=== PATIENT | female | born 1955 | race Caucasian/White ===

== ENCOUNTER 2021-12-31 14:03 | Inpatient (IN) | payer OTHER ==
--- OUTSIDE RECORDS SUMMARY | 2021-12-31 14:10 | XMS REPORT | Continuity of Care Document ---
:1955 Author Organization [facility] t Address [address] [place] [address] Care Team Providers Name Role Phone KOSTA AQUINO Primary Care Physician Unavailable TONI HUANG Attending Clinician Unavailable KAYLYNN VORA Attending Clinician Unavailable Kaylynn Vora DO Attending Clinician Reji Mcinotsh Attending Clinician Unavailable DAMION MARTÍNEZ Attending Clinician Unavailable Damion Martínez Attending Clinician Cher Milian Attending Clinician Saul Hollis MD Attending Clinician Physician, No Primary or Family Admitting Clinician Unavaila ble DAMION MARTÍNEZ Admitting Clinician Unavailable Damion Martínez Admitting Clinician Payers Payer Name Policy Type Policy Number Effective Date Expiration Date S julia [facility] WELLMED [id number] 2021 00:00:00 WELLMED/AARP [id number] 2021 MEDICARE ADVANTAGE 00:00:00 Problems Condition Condition Condition Status Onset Resolution Last Treating Co mments Source Name Details Category Date Date Treatment Clinician Date SYSTEMIC SYSTEMIC Diagnosis Active 2021-12-06 Memoria MASTOCYTOS MASTOCYTOS 11-27 07:56:00 l IS IS Active 00:00: Willie katz 11/27/2021 00 [facility] BONE BONE Diagnosis Active 2021-12-06 Mem oria MARROW MARROW 11-27 07:56:00 l BIO/ASPR BIO/ASPR 00:00: Willie katz VR VR Active 00 11/27/2021 [facility] WEAKNESS, WEAKNESS, Diagnosis Active 2021-09-29 Memoria DISORIENTE DISORIENTE 09-29 19:12:00 l D D Active 00:00: Bony 09/29/2021 00 [facility] DIABETIC DIABETIC Diagnosis Active 2021-10-04 Memoria FOOT FOOT 09-29 13:05:00 l INFECTION INFECTION 00:00: Herm thai Active 00 09/29/2021 [facility] Sepsis, Sepsis, Problem 2021-10-09 Me moria unspecifie unspecifie 06:57:17 l d organism d organism He rmann [facility] Other Other Problem 2021-10-09 Memor ia osteomyeli osteomyeli 06:57:17 l tis, ankle tis, ankle He rmann and foot and foot 10/09/2021 [facility] Chronic Chronic Problem 2021-10-09 M emoria systolic systolic 06:57:17 l (congestiv (congestiv He rmann e) heart e) heart failure failure 10/09/2021 [facility] Type 2 Type 2 Problem 2021-10-09 Dominick brock diabetes diabetes 06:57:17 l mellitus mellitus Willie n with with diabetic diabetic peripheral peripheral angiopathy angiopathy with with gangrene gangrene 10/09/2021 [facility] Acute Acute Problem 2021-10-09 Memor ia kidney kidney 06:57:17 l failure, failure, Willie n unspecifie unspecifie d d 10/09/2021 [facility] Other mast Other Problem 2021-10-09 M emoria cell mast cell 06:57:17 l neoplasms neoplasms Herm thai of of uncertain uncertain behavior behavior 10/09/2021 [facility] Chronic Chronic Problem 2021-10-09 Me josh kidney kidney 06:57:17 l disease, disease, Willie n stage 4 stage 4 (severe) (severe) 10/09/2021 [facility] Hypertensi Hypertens Problem 2021-10-09 Memoria ve heart igor heart 06:57:17 l and and Bony chronic chronic kidney kidney disease disease with heart with heart failure failure and stage and stage 1 through 1 through stage 4 stage 4 chronic chronic kidney kidney disease, disease, or or unspecifie unspecifie d chronic d chronic kidney kidney disease disease 10/09/2021 [facility] Contact Contact Problem 2021-10-09 Me moria with and with and 06:57:17 l (suspected (suspected He rmann ) exposure ) exposure to COVID19 to COVID19 10/09/2021 [facility] Type 2 Type 2 Problem 2021-10-09 Dominick brock diabetes diabetes 06:57:17 l mellitus mellitus Willie n with other with other specified specified complicati complicati on on 10/09/2021 [facility] Non-pressu Non-press Problem 2021-10-09 Memoria re chronic ure 06:57:17 l ulcer of chronic Ben[place]ides other part ulcer of of left other part foot with of left unspecifie foot with d severity unspecifie d severity 10/09/2021 [facility] Type 2 Type 2 Problem 2021-10-09 Dominick brock diabetes diabetes 06:57:17 l mellitus mellitus Willie n with with diabetic diabetic chronic chronic kidney kidney disease disease 10/09/2021 [facility] Type 2 Type 2 Problem 2021-10-09 Dominick brock diabetes diabetes 06:57:17 l mellitus mellitus Willie n with with hyperglyce hyperglyce avi avi 10/09/2021 [facility] Puncture Puncture Problem 2021-10-09 Memoria wound wound 06:57:17 l without without Bony foreign foreign body, body, unspecifie unspecifie d foot, d foot, initial initial encounter encounter 10/09/2021 [facility] Type 2 Type 2 Problem 2021-10-09 Dominick brock diabetes diabetes 06:57:17 l mellitus mellitus Willie n with foot with foot ulcer ulcer 10/09/2021 [facility] Type 2 Type 2 Problem 2021-10-09 Mem oria diabetes diabetes 06:57:17 l mellitus mellitus Willie n with other with other skin skin complicati complicati ons ons 10/09/2021 [facility] Nail Nail Problem 2021-10-09 Memor ia entering entering 06:57:17 l through through Benavides skin, skin, initial initial encounter encounter 10/09/2021 [facility] Type 2 Type 2 Problem 2021-10-09 Dominick brock diabetes diabetes 06:57:17 l mellitus mellitus Willie n with with diabetic diabetic polyneurop polyneurop athy athy 10/09/2021 [facility] terminologist terminologist Problem 2021-10-09 Memoria (current) (current) 06:57:17 l use of use of Ben[place]ides aspirin aspirin 10/09/2021 [facility] Other long Other Problem 2021-10-09 M emoria term extermination inspector 06:57:17 l (current) (current) Herm thai drug drug therapy therapy 10/09/2021 [facility] 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 06:57:17 l (disorder) (disorder) He rmann Resolved Problem 10/09/2021 [facility] Blood Blood Diagnosis Active 2019-01-14 Mem oria glucose glucose 18:07:58 l elevated elevated Willie n Active 01/14/2019 [facility] Non-insuli Non-insul Diagnosis Active 2019-01-14 Memoria n in 18:07:58 l dependent dependent Herm thai type 2 type 2 diabetes diabetes mellitus mellitus (HCCode) (HCCode) Active 01/14/2019 [facility] Diabetes Diabetes Problem Active 2021-10-09 Memoria mellitus mellitus 06:57:17 l (disorder) (disorder) He rmann Active Problem 10/09/2021 [facility] Hypertensi Problem Active 2021-10-09 M emoria ve Hypertensi 06:57:17 l disorder, ve Bony systemic disorder, arterial systemic (disorder) arterial (disorder) Active Problem 10/09/2021 [facility] Mast cell Mast cell Problem Active 2021-10-09 Memoria neoplasm neoplasm 06:57:17 l (disorder) (disorder) He rmann Active Problem 10/09/2021 [facility] Open wound Open Diagnosis Active 2019-06-07 Memoria of left wound of 18:40:02 l lower left lower Willie n extremity, extremity, initial initial encounter encounter Active 06/07/2019 [facility] TYPE 2 TYPE 2 Diagnosis Active 2021-10-04 Me moreno DIABETES DIABETES 13:05:00 l MELLITUS MELLITUS Willie sterling WITH OTHER WITH OTHER SKIN SKIN Active [facility] Bony Mast cell Mast cell Problem Active 2021-10-09 Memoria disorder disorder 06:57:17 l (disorder) (disorder) He rmann Active Problem 10/09/2021 [facility] No known No known Disease Unive rs active active ity of problems problems [place] [facility] Allergies, Adverse Reactions, Alerts Allergy Allergy Status Severity Reaction(s) Onset Inactive Treating Comm ents Source Name Type Date Date Clinician acetamin DA Active [facility] 10-26 [place] 00:00: d 00 [facility] ibuprofe DA Active [facility] n SWE[facility] 10-26 [place] 00:00: d 00 [facility] Sodium Sodium Active Anaphylaxis Memor ia Chloride Chloride 2-02 l 0.9 % 0.9 % 00:00: Bony (Flush) (Flush) 00 SODIUM DRUG Active Anaphylaxis Unive rs CHLORIDE INGREDI 2- ity of 0.9 % 00:00: [place] (FLUSH) 00 Medical Branch Sodium Propensi Active Anaphylaxis Patients U nivers Chloride ty to 2- states ity of 0.9 % adverse 00:00: allergic [place] (Flush) reaction 00 to Medical s everythin Branch g and cannot have an IV flush or any other meds. Tylenol Tylenol Active Memoria Allergy Allergy 01-09 l Complete Complete 00:00: Willie n 00 Ibuprofe Propensi Active [facility] n ty to 01-09 [place] adverse 00:00: of reaction 00 Medicin s to e drug Tylenol Propensi Active [facility] Allergy ty to 01-09 [place] Complete adverse 00:00: of reaction 00 Medicin s to e drug ibuprofe ibuprofe Active [facility] a n n l Bony Tylenol Tylenol Active Zakiaoria ezequiel [place] Social History Social Habit Start Date Stop Date Quantity Comments Source Alcohol intake [facility] lege of Medicine History [facility] ge of Alcohol Std Drinks Medici ne History [facility] ge of Alcohol Binge Medicine Exposure to 2021-12-16 2021-12-26 Not sure [facility] SARS-CoV-2 (event) 00:00:00 16:47:00 Medica l Branch Social History 2019-06-14 2019-06-14 [facility] zaidaann 03:05:18 03:05:18 History SDOH 2019-01-09 2019-01-09 1 [facility] Jamal ge of Alcohol Frequency 00:00:00 00:00:00 Medicin e Sex Ass[birth year] [facility] [place] 00:00:00 00:00:00 Medical Branch Smoking Status Start Date Stop Date Source Tobacco smoking consumption [facility] Medical unknown Branch Social [facility] Medications Ordered Filled Start Stop Current Ordering Indication Dosage Frequency Signature Comments Components Source Medication Medication Date Date Medication? Clinician (SIG) Name Name insulin 2021- No 10U 10 Units, Univ ers regular 12-26 Subcutaneo ity o f human 23:30: 22:30 us, ONCE, [place] (HUMULIN R) 00 :00 1 dose, On Me dical injection Tue Branch 10 Units 12/26/21 at 1830, Routine hydrOXYzine No 25mg 25 mg, Uni vers (ATARAX) 12-26 Oral, ity of tablet 25 22:30: 22:29 ONCE, 1 [place] mg 00 :00 dose, On Medical Tue Branch 12/26/21 at 1730, YOBANY glipiZIDE 2021- Yes [id number] 10mg Take 1 Univers XL 10 mg 24 12-26 tablet by it y of hr tablet 00:00: 04:59 mouth [place] 00 :00 daily with Medical breakfast Branch for 30 days. hydrOXYzine Yes 25 mg = 1 M emoria hydrochlori 5-31 tab, PO, l de 25 mg 21:23: TID, PRN Alyson nn oral tablet 00 Itching, # 15 tab, 0 Refill(s), [id number], 160.02, cm, 09/30/21 3:14:00 CDT, Height, 85.54, kg, 09/30/21 3:14:00 CDT, Weight hydrOXYzine Yes 25 mg = 1 M emoria hydrochlori 5-31 tab, PO, l de 25 mg 21:23: TID, PRN Alyson nn oral tablet 00 Itching, # 15 tab, 0 Refill(s), Pharmacy: [id number], 160.02, cm, 09/30/21 3:14:00 CDT, Height, 85.54, kg, 09/30/21 3:14:00 CDT, Weight doxycycline Yes 100 mg = 1 Memoria monohydrate 5-31 tab, PO, l 100 mg oral 17:51: Q12H, X 10 Bony tablet 00 day, # 20 tab, 0 Refill(s), Pharmacy: [facility][id number], 160.02, cm, 09/30/21 3:14:00 CDT, Height, 85.54, kg, 09/30/21 3:14:00 CDT, Weight doxycycline Yes 100 mg = 1 Memoria monohydrate 5-31 tab, PO, l 100 mg oral 17:51: Q12H, X 10 Benavides tablet 00 day, # 20 tab, 0 Refill(s), Pharmacy: [facility] #[id number], 160.02, cm, 09/30/21 3:14:00 CDT, Height, 85.54, kg, 09/30/21 3:14:00 CDT, Weight lidocaine No Route: IV, Me moria (ANES) 5-31 Drug form: l 14:26: INJ, ONCE, Stop date: 10/03/21 9:26:00 CDT ondansetron No Route: IV, Memoria (ANES) 5-31 Drug form: l 14:26: INJ, ONCE, Bony 00 Stop date: 10/03/21 9:26:00 CDT phenylephri No Route: IV, Memoria ne (ANES) 5-31 Drug form: l 14:26: INJ, ONCE, Benavides 00 Stop date: 10/03/21 9:26:00 CDT lidocaine No Route: IV, Me moria (ANES) 5-31 Drug form: l 14:26: INJ, ONCE, Stop date: 10/03/21 9:26:00 CDT ondansetron No Route: IV, Memoria (ANES) - Drug form: l 14:26: INJ, ONCE, Stop date: 10/03/21 9:26:00 CDT phenylephri No Route: IV, Memoria ne (ANES) 10-03 Drug form: l 14:26: INJ, ONCE, Stop date: 10/03/21 9:26:00 CDT fentaNYL No Route: IV, Mem oria (ANES) 10-03 Drug form: l 14:23: INJ, ONCE, Stop date: 10/03/21 9:23:00 CDT midazolam No Route: IV, Me moria (ANES) 10-03 Drug form: l 14:23: SOLN, ONCE, Stop date: 10/03/21 9:23:00 CDT fentaNYL No Route: IV, Mem oria (ANES) 10-03 Drug form: l 14:23: INJ, ONCE, Stop date: 10/03/21 9:23:00 CDT midazolam No Route: IV, Me moria (ANES) - Drug form: l 14:23: SOLN, ONCE, Stop date: 10/03/21 9:23:00 CDT propofol No Route: IV, Mem oria (ANES) 10 10-03 Drug form: l mg 13:46: INJ, Start date: 10/03/21 8:46:00 CDT, Stop date: 10/03/21 9:46:00 CDT propofol No Route: IV, Mem oria (ANES) 10 10-03 Drug form: l mg 13:46: INJ, Start date: 10/03/21 8:46:00 CDT, Stop date: 10/03/21 9:46:00 CDT Lactated No Route: IV, Mem oria Ringers - Total l Injection 13:33: Volume: Alyson nn IV (ANES) 00 1,000, 1000 mL Start date: 10/03/21 8:33:00 CDT, Stop date: 10/03/21 9:33:00 CDT Lactated No Route: IV, Mem oria Ringers 5-31 Total l Injection 13:33: Volume: Alyson nn IV (ANES) 00 1,000, 1000 mL Start date: 10/03/21 8:33:00 CDT, Stop date: 10/03/21 9:33:00 CDT insulin No Notes: Memoria glargine 5-31 (Same as: l 100 02:00: Lantus) Do Bony units/mL 00 not hold subcutaneou insulin s solution without contacting prescriber WASTE: F/P - Black; E - Municipal Trash Bin "single patient use only" Stable for 28 days at room temperatur e Expires in days from ____Date insulin No Notes: Memoria glargine 5-31 (Same as: l 100 02:00: Lantus) Do Benavides units/mL 00 not hold subcutaneou insulin s solution without contacting prescriber WASTE: F/P - Black; E - Municipal Trash Bin "single patient use only" Stable for 28 days at room temperatur e Expires in days from ____Date insulin No Notes: Memoria lispro 5-30 (Same as: l 21:30: Humalog) Benavides 00 Roll in palms of hands gently; Do not shake vigorously . WASTE: F/P - Black; E - Municipal Trash Bin Stable for 28 days at room temperatur e. Expires in days from ____Date insulin No Notes: Memoria lispro 5-30 (Same as: l 21:30: Humalog) Bony 00 Roll in palms of hands gently; Do not shake vigorously . WASTE: F/P - Black; E - Municipal Trash Bin Stable for 28 days at room temperatur e. Expires in days from ____Date amLODIPine No Notes: Memor ia 5-30 (Same as: l 14:00: Norvasc) Benavides amLODIPine No Notes: Memor ia 5-30 (Same as: l 14:00: Norvasc) Ben[place]ides hydrOXYzine No Notes: Dominick brock 5-30 (Same as: l 06:03: Atarax) Bony Avoid alcohol. hydrOXYzine No Notes: Dominick brock 5-30 (Same as: l 06:03: Atarax) Bony Avoid alcohol. insulin No 10 unit, Memori a glargine 5-30 Route: l 100 02:00: SUB-Q, Benavides units/mL 00 Bedtime, subcutaneou Dosing s solution Weight 85.54, kg, Start date: 10/01/21 21:00:00 CDT, Duration: 30 day, Stop date: 10/30/21 21:00:00 CDT insulin No 10 unit, Memori a glargine 5-30 Route: l 100 02:00: SUB-Q, Benavides units/mL 00 Bedtime, subcutaneou Dosing s solution Weight 85.54, kg, Start date: 10/01/21 21:00:00 CDT, Duration: 30 day, Stop date: 10/30/21 21:00:00 CDT insulin No Notes: Memoria lispro 5-29 (Same as: l 16:30: Humalog) Bony Roll in palms of hands gently; Do not shake vigorously . WASTE: F/P - Black; E - Municipal Trash Bin Stable for 28 days at room temperatur e. Expires in days from ____Date insulin No Notes: Memoria lispro 5-29 (Same as: l 16:30: Humalog) Benavides 00 Roll in palms of hands gently; Do not shake vigorously . WASTE: F/P - Black; E - Municipal Trash Bin Stable for 28 days at room temperatur e. Expires in days from ____Date doxycycline No Notes: NO M emoria 5-29 MILK/ANTAC l 14:00: IDS/IRON Ben[place]ides 00 Take 1 hour before or 2 hours after dairy products Lantus 100 No Notes: Memor ia units/mL 5-29 (Same as: l 14:00: Lantus) Do Benavides not hold insulin without contacting prescriber WASTE: F/P - Black; E - Municipal Trash Bin "single patient use only" Stable for 28 days at room temperatur e Expires in days from ____Date Santyl No Notes: Memoria 5-29 (Same As: l 14:00: Santyl) Bony 00 doxycycline No Notes: NO M emoria 5-29 MILK/ANTAC l 14:00: IDS/IRON Bony 00 Take 1 hour before or 2 hours after dairy products Lantus 100 No Notes: Memor ia units/mL -29 (Same as: l 14:00: Lantus) Do Benavides 00 not hold insulin without contacting prescriber WASTE: F/P - Black; E - Municipal Trash Bin "single patient use only" Stable for 28 days at room temperatur e Expires in days from ____Date Santyl No Notes: Memoria 5-29 (Same As: l 14:00: Santyl) Dextrose No 25 mL, Memoria 50% Syringe 10-01 Route: l (D50W) 10:07: IVP, Bony Dosing Weight 85.54, kg, PRN, PRN Blood Glucose Results, Start date: 10/01/21 5:07:00 CDT, Duration: 30 day, Stop date: 10/31/21 5:06:00 CDT glucagon No 1 mg, Memoria 10-01 Route: IM, l 10:07: Drug form: Benavides 00 PDR/INJ, PRN, Dosing Weight 85.54, kg, PRN Blood Glucose Results, Start date: 10/01/21 5:07:00 CDT, Duration: 30 day, Stop date: 10/31/21 5:06:00 CDT, 0 insulin No Notes: Memoria lispro 10-01 (Same as: l 10:07: Humalog) Roll in palms of hands gently; Do not shake vigorously . WASTE: F/P - Black; E - Municipal Trash Bin Stable for 28 days at room temperatur e. Expires in days from ____Date Dextrose No 25 mL, Memoria 50% Syringe 10-01 Route: l (D50W) 10:07: IVP, Dosing Weight 85.54, kg, PRN, PRN Blood Glucose Results, Start date: 10/01/21 5:07:00 CDT, Duration: 30 day, Stop date: 10/31/21 5:06:00 CDT glucagon No 1 mg, Memoria 10-01 Route: IM, l 10:07: Drug form: PDR/INJ, PRN, Dosing Weight 85.54, kg, PRN Blood Glucose Results, Start date: 10/01/21 5:07:00 CDT, Duration: 30 day, Stop date: 10/31/21 5:06:00 CDT, 0 insulin No Notes: Memoria lispro 10-01 (Same as: l 10:07: Humalog) Roll in palms of hands gently; Do not shake vigorously . WASTE: F/P - Black; E - Municipal Trash Bin Stable for 28 days at room temperatur e. Expires in days from ____Date hydrOXYzine No Notes: Dominick brock 09-30 (Same as: l 15:06: Atarax) Avoid alcohol. hydrOXYzine No Notes: Dominick brock 28 (Same as: l 15:06: Atarax) Avoid alcohol. Lantus 100 No Notes: Memor ia units/mL 09-30 (Same as: l 14:00: Lantus) Do not hold insulin without contacting prescriber WASTE: F/P - Black; E - Municipal Trash Bin "single patient use only" Stable for 28 days at room temperatur e Expires in days from ____Date aspirin No Notes: Do Memor ia 5-28 not crush l 14:00: or chew. Bony 00 (Same As: Ecotrin) Lipitor No Notes: Memoria 5-28 (Same as: l 14:00: Lipitor) amLODIPine No Notes: Memor ia 5-28 (Same as: l 14:00: Norvasc) bumetanide No Notes: Memor ia 5-28 (Same As: l 14:00: Bumex) carvedilol No Notes: Memor ia 5-28 Give with l 14:00: food. (Same As: Coreg) Lantus 100 No Notes: Memor ia units/mL 5-28 (Same as: l 14:00: Lantus) Do not hold insulin without contacting prescriber WASTE: F/P - Black; E - Municipal Trash Bin "single patient use only" Stable for 28 days at room temperatur e Expires in days from ____Date aspirin No Notes: Do Memor ia 5-28 not crush l 14:00: or chew. Benavides 00 (Same As: Ecotrin) Lipitor No Notes: Memoria 5-28 (Same as: l 14:00: Lipitor) amLODIPine No Notes: Memor ia 5-28 (Same as: l 14:00: Norvasc) bumetanide No Notes: Memor ia 5-28 (Same As: l 14:00: Bumex) carvedilol No Notes: Memor ia 5-28 Give with l 14:00: food. (Same As: Coreg) D10W 2022-0 No 125 mL, Memoria (bolus) IV 5-28 Rate: 999 l 05:20: ml/hr, Bony 00 Infuse over: 0.1 hr, Route: IVPB, Total Volume: 125, Start date: 09/30/21 0:20:00 CDT, Duration: 30 day, Stop date: 10/30/21 0:19:00 CDT, PRN Blood Glucose Results, 0 D10 No 125 mL, Memoria (bolus) IV 5-28 Rate: 999 l 05:20: ml/hr, Benavides 00 Infuse over: 0.1 hr, Route: IVPB, Total Volume: 125, Start date: 09/30/21 0:20:00 CDT, Duration: 30 day, Stop date: 10/30/21 0:19:00 CDT, PRN Blood Glucose Results, 0 D1 No 250 mL, Memoria (bolus) IV 5-28 Rate: 999 l 05:19: ml/hr, Benavides 00 Infuse over: 0.3 hr, Route: IVPB, Total Volume: 250, Start date: 09/30/21 0:19:00 CDT, Duration: 30 day, Stop date: 10/30/21 0:18:00 CDT, PRN Blood Glucose Results, 0 No 250 mL, Memoria (bolus) IV 5-28 Rate: 999 l 05:19: ml/hr, Benavides 00 Infuse over: 0.3 hr, Route: IVPB, Total Volume: 250, Start date: 09/30/21 0:19:00 CDT, Duration: 30 day, Stop date: 10/30/21 0:18:00 CDT, PRN Blood Glucose Results, 0 heparin 2021- No Notes: Memoria 5000 5-28 porcine l units/mL 05:00: heparin Willie n injectable 00 solution heparin 2021- No Notes: Memoria 5000 5-28 porcine l units/mL 05:00: heparin Willie n injectable 00 solution cefepime + No Notes: Memor ia Sodium 5-28 (Same As: l Chloride 04:00: Maxipime) Herm thai 0.9% IV 50 00 mL MEDICATION WASTE Product Size: 1000 mg Product Wasted: ___ mg cefepime + 2021-0 No Notes: Memor ia Sodium 5-28 (Same As: l Chloride 04:00: Maxipime) Herm thai 0.9% IV 50 00 mL MEDICATION WASTE Product Size: 1000 mg Product Wasted: ___ mg vancomycin 2021-0 No 2000 mg: Me moria + Sodium 5-28 infuse l Chloride 03:31: over 2.5 Alyson nn 0.9% IV 500 00 hours For mL adult patients only: Round to nearest 250 mg per Medical Staff approval MEDICATION WASTE Product Size: 1000 mg Product Wasted: ___ mg vancomycin 2021-0 No 2000 mg: Me moria + Sodium 5-28 infuse l Chloride 03:31: over 2.5 Alyson nn 0.9% IV 500 00 hours For mL adult patients only: Round to nearest 250 mg per Medical Staff approval MEDICATION WASTE Product Size: 1000 mg Product Wasted: ___ mg hydrALAZINE 2021-0 No Notes: Dominick brock 5-28 (Same as: l 03:13: Apresoline ) Push over 5 minutes hydrALAZINE 2021- No Notes: Dominick brock 5-28 (Same as: l 03:13: Apresoline ) Push over 5 minutes Dextrose 2021-0 No 25 mL, Memoria 50% Syringe - Route: l (D50W) 03:12: IVP, Dosing Weight 78.182, kg, PRN, PRN Blood Glucose Results, Start date: 09/29/21 22:12:00 CDT, Duration: 30 day, Stop date: 10/29/21 22:11:00 CDT glucagon 2021-0 No 1 mg, Memoria 5-28 Route: IM, l 03:12: Drug form: PDR/INJ, PRN, Dosing Weight 78.182, kg, PRN Blood Glucose Results, Start date: 09/29/21 22:12:00 CDT, Duration: 30 day, Stop date: 10/29/21 22:11:00 CDT, 0 insulin 2021-0 No Notes: Memoria lispro - (Same as: l 03:12: Humalog) Roll in palms of hands gently; Do not shake vigorously . WASTE: F/P - Black; E - Municipal Trash Bin Stable for 28 days at room temperatur e. Expires in days from ____Date Dextrose No 25 mL, Memoria 50% Syringe 09-30 Route: l (D50W) 03:12: IVP, Benavides Dosing Weight 78.182, kg, PRN, PRN Blood Glucose Results, Start date: 09/29/21 22:12:00 CDT, Duration: 30 day, Stop date: 10/29/21 22:11:00 CDT glucagon No 1 mg, Memoria 09-30 Route: IM, l 03:12: Drug form: Benavides 00 PDR/INJ, PRN, Dosing Weight 78.182, kg, PRN Blood Glucose Results, Start date: 09/29/21 22:12:00 CDT, Duration: 30 day, Stop date: 10/29/21 22:11:00 CDT, 0 insulin No Notes: Memoria lispro 09-30 (Same as: l 03:12: Humalog) Roll in palms of hands gently; Do not shake vigorously . WASTE: F/P - Black; E - Municipal Trash Bin Stable for 28 days at room temperatur e. Expires in days from ____Date Vancomycin No Notes: Memor ia Pharmacy 09-30 Vancomycin l Dosing 03:10: Pharmacy Bony Consult 53 Dosing Protocol PHARMAC Y USE ONLY Note: This is not a medication order. This is a consultati on order. Vancomycin No Notes: Memor ia Pharmacy 09-30 Vancomycin l Dosing 03:10: Pharmacy Bony Consult 53 Dosing Protocol PHARMAC Y USE ONLY Note: This is not a medication order. This is a consultati on order. morphine No 1 mg, 0.5 Dominick brock Sulfate - mL, Route: l 03:10: IVP, Drug Benavides 00 form: SOLN, Q4H, Dosing Weight 78.182, kg, PRN Pain Score 7-10, Start date: 09/29/21 22:10:00 CDT, Duration: 30 day, Stop date: 10/29/21 22:09:00 CDT, 0 morphine 2022-0 No 1 mg, 0.5 Dominick brock Sulfate 5-28 mL, Route: l 03:10: IVP, Drug form: SOLN, Q4H, Dosing Weight 78.182, kg, PRN Pain Score 7-10, Start date: 09/29/21 22:10:00 CDT, Duration: 30 day, Stop date: 10/29/21 22:09:00 CDT, 0 Dextrose 2022-0 No 25 mL, Memoria 50% Syringe 09-30 Route: l (D50W) 03:09: IVP, Dosing Weight 78.182, kg, PRN, PRN Blood Glucose Results, Start date: 09/29/21 22:09:00 CDT, Duration: 30 day, Stop date: 10/29/21 22:08:00 CDT glucagon 2022-0 No 1 mg, Memoria 09-30 Route: IM, l 03:09: PRN, Dosing Weight 78.182, kg, PRN Blood Glucose Results, Start date: 09/29/21 22:09:00 CDT, Duration: 30 day, Stop date: 10/29/21 22:08:00 CDT Dextrose 2022-0 No 25 mL, Memoria 50% Syringe 09-30 Route: l (D50W) 03:09: IVP, Dosing Weight 78.182, kg, PRN, PRN Blood Glucose Results, Start date: 09/29/21 22:09:00 CDT, Duration: 30 day, Stop date: 10/29/21 22:08:00 CDT glucagon 2022-0 No 1 mg, Memoria -28 Route: IM, l 03:09: PRN, Dosing Weight 78.182, kg, PRN Blood Glucose Results, Start date: 09/29/21 22:09:00 CDT, Duration: 30 day, Stop date: 10/29/21 22:08:00 CDT vancomycin 2022-0 No 1,000 mg, Me moria - Route: l 03:08: IVPB, Bony 00 ONCE, Dosing Weight 78.182, kg, Priority: STAT, Start date: 09/29/21 22:08:00 CDT, Stop date: 09/29/21 22:08:00 CDT, ABX Indication : Skin/Soft Tissue Infection vancomycin 2021-0 No 1,000 mg, Me moria 5-28 Route: l 03:08: IVPB, Benavides 00 ONCE, Dosing Weight 78.182, kg, Priority: STAT, Start date: 09/29/21 22:08:00 CDT, Stop date: 09/29/21 22:08:00 CDT, ABX Indication : Skin/Soft Tissue Infection Sodium 2-0 No 1,000 mL, Memori a Chloride 5-27 1000 l 0.9% 23:10: ml/hr, Benavides (Bolus) IV 00 Infuse Over: 1 hr, Route: IV, 1,000, Drug form: INJ, ONCE, Priority: STAT, Dosing Weight 78.182 kg, Start date: 09/29/21 18:10:00 CDT, Stop date: 09/29/21 18:10:00 CDT, 0 Sodium 2021-0 No 1,000 mL, Memori a Chloride 5-27 1000 l 0.9% 23:10: ml/hr, Bony (Bolus) IV 00 Infuse Over: 1 hr, Route: IV, 1,000, Drug form: INJ, ONCE, Priority: STAT, Dosing Weight 78.182 kg, Start date: 09/29/21 18:10:00 CDT, Stop date: 09/29/21 18:10:00 CDT, 0 Saline No Notes: Memoria Flush 0.9% 5-27 (Same as: l 23:08: BD Benavides 00 Posiflush) cefepime + No Notes: Memor ia Sodium 5-27 (Same as: l Chloride 23:08: Maxipime) Herm thai 0.9% IV 50 00 mL MEDICATION WASTE Product Size: 2000 mg Product Wasted: ___ mg Saline No Notes: Memoria Flush 0.9% 5-27 (Same as: l 23:08: BD Bony 00 Posiflush) cefepime + No Notes: Memor ia Sodium 5-27 (Same as: l Chloride 23:08: Maxipime) Herm thai 0.9% IV 50 00 mL MEDICATION WASTE Product Size: 2000 mg Product Wasted: ___ mg hydrOXYzine 2019- Yes Take 1 Dominick brock 25 mg 2-02 tablet by l tablet 00:00: mouth Bony 00 every 6 (six) hours. sulfamethox 2019-0 Yes Take 1 Dominick brock azole-trime 2-02 tablet by l thoprim 00:00: mouth [place] 800-160 mg 00 every 12 per tablet (twelve) hours. hydrOXYzine 2019- Yes [id number] 25mg Take 1 Univers 25 mg 2-02 tablet by ity of tablet 00:00: mouth [place] 00 every 6 Medical (six) Branch hours. sulfamethox 2019-0 Yes [id number] 1{tbl} Take 1 Univers azole-trime 2-02 tablet by ity of thoprim 00:00: mouth [place] 800-160 mg 00 every 12 Medic al per tablet (twelve) Branc h hours. ALOGLIPTIN 2019- No Take by [place] neha BENZOATE OR 01-09 mouth. Colle ge 20:58: 00:00 of 05 :00 Medicin e Repaglinide 2019- No Take by Buzz ledezma (PRANDIN 01-09 mouth 3 College OR) 20:57: 00:00 times of 56 :00 daily Medicin (with e meals). Repaglinide No Take by Zakia oria (PRANDIN 01-09 mouth 3 l OR) 00:00: times Bony 00 daily (with meals). ALOGLIPTIN No Take by Dominick brock BENZOATE OR 01-09 mouth. l 00:00: Bony 00 hydrOXYzine Yes Take 25 mg Memoria (ATARAX) 25 6-13 by mouth l MG tablet 00:00: daily as Herm thai 00 needed. hydrOXYzine 2018- Yes 25mg Take 25 mg [facility] (ATARAX) 25 6-13 by mouth [place] ege MG tablet 00:00: daily as of 00 needed. Medicin e Vital Signs Vital Name Observation Time Observation Value Comments Source Systolic blood 2021-12-26 23:15:00 139 mm[Hg] Univer sity of pressure [facility] Diastolic blood 2021-12-26 23:15:00 69 mm[Hg] Unive rsity of pressure [facility] Heart rate 2021-12-26 23:00:00 102 /min [facility]i ty [facility] Respiratory rate 2021-12-26 23:00:00 23 /min [facility] saturation in 2021-12-26 23:00:00 98 /min University Arterial blood by [facility] Pulse oximetry Branch Body temperature 2021-12-26 21:49:00 37 Amanda Univ ersity of [facility] Body height 2021-12-26 21:49:00 157.5 cm Universi ty [facility] Body weight 2021-12-26 21:49:00 80.74 kg [facility]i ty [facility] BMI 2021-12-26 21:49:00 32.56 kg/m2 Universi ty [facility] Systolic blood 2019-01-09 19:38:00 102 mm[Hg] [facility] pressure Medicine Diastolic blood 2019-01-09 19:38:00 90 mm[Hg] [facility] Medicine Heart rate 2019-01-09 19:38:00 102 /min [facility] Respiratory rate 2019-01-09 19:38:00 16 /min [facility] Body height 2019-01-09 19:38:00 157.5 cm [facility] Body weight 2019-01-09 19:38:00 75.751 kg [facility] BMI 2019-01-09 19:38:00 30.54 kg/m2 [facility] Systolic blood 2019-01-09 19:38:00 102 mm[Hg] [facility] pressure Medicine Diastolic blood 2019-01-09 19:38:00 90 mm[Hg] [facility] Medicine Heart rate 2019-01-09 19:38:00 102 /min [facility] Respiratory rate 2019-01-09 19:38:00 16 /min [facility] Body height 2019-01-09 19:38:00 157.5 cm [facility] Body weight 2019-01-09 19:38:00 75.751 kg [facility] BMI 2019-01-09 19:38:00 30.54 kg/m2 [facility] Heart Rate 2021-10-03 21:08:31 [facility] Respitory Rate 2021-10-03 21:08:31 Memori al [place] Systolic (mm Hg) 2021-10-03 21:08:08 Dominick rial Bony Diastolic (mm Hg) 2021-10-03 21:08:08 Mem orial [place] Heart Rate 2021-10-03 21:08:08 Memorial Bony Temperature Oral (F) 2021-10-03 21:07:28 98.5 F [facility] Heart Rate 2021-10-03 16:41:25 [facility] [place] Respitory Rate 2021-10-03 16:41:25 Memori al Bony Systolic (mm Hg) 2021-10-03 16:41:14 Dominick rial [place] Diastolic (mm Hg) 2021-10-03 16:41:14 Mem orial Bony Temperature Oral (F) 2021-10-03 16:40:11 98.2 F [facility] [place] Respitory Rate 2021-10-03 15:25:53 Memori al [place] Systolic (mm Hg) 2021-10-03 15:25:25 Dominick rial Bony Diastolic (mm Hg) 2021-10-03 15:25:25 Mem orial [place] Temperature Oral (F) 2021-10-03 15:25:06 98.1 F Memorial Bony Height 2021-09-30 08:14:00 160.02 cm [facility] Bony Weight 2021-09-30 08:14:00 [facility] BMI Calculated 2021-09-30 08:14:00 Memori al [place] Height 2021-09-30 05:04:00 157.48 cm [facility] BMI Calculated 2021-09-30 05:04:00 Memori al Bony Weight 2021-09-30 05:04:00 [facility] [place] Weight 2021-09-30 03:10:00 [facility] [place] Systolic (mm Hg) 2019-06-07 17:33:00 Dominick rial [place] Diastolic (mm Hg) 2019-06-07 17:33:00 Mem orial Bony Heart Rate 2019-06-07 17:33:00 Memorial Bony Respitory Rate 2019-06-07 17:33:00 Memori al Bony Temperature Oral (F) 2019-06-07 17:15:00 36.67 Amanda [facility] Weight 2019-06-07 17:15:00 Memorial Bony Systolic (mm Hg) 2019-01-09 19:38:00 Dominick rial Bony Diastolic (mm Hg) 2019-01-09 19:38:00 Mem orial Bony Heart Rate 2019-01-09 19:38:00 Memorial Bony Respitory Rate 2019-01-09 19:38:00 Memori al [place] Height 2019-01-09 19:38:00 157.5 cm Memorial Bony Weight 2019-01-09 19:38:00 Memorial Bony Procedures Procedure Date / Time Performed Performing Clinician Sour e POCT GLUCOSE 2021-12-26 22:11:00 Vora, [facility] (AUTOMATED) Medical Branch ASSIGNMENT OF BENEFITS 2019-06-08 00:07:18 Doctor Unassigned, No [facility] [place] Name CONSENT/REFUSAL FOR 2019-06-08 00:06:21 Doctor Unassigned, No Sc morial [place] DIAGNOSIS AND Name TREATMENT NOTICE OF PRIVACY 2019-06-08 00:04:49 Doctor Unassigned, No Dominick tristen Bony PRACTICES Name POCT HEMOGLOBIN A1C 2019-01-10 00:55:00 Saul Hollis [facility] POCT HEMOGLOBIN A1C 2019-01-09 19:55:00 Saul Hollis [facility] Plan of Care Planned Activity Planned Date Details Comments Source Diagnostic Test 2019-05-11 LIPID PANEL [code = Expected: [facility] Pending 00:00:00 23204-0] 05/11/2019, of Medicine Expires: 01/09/2022 Diagnostic Test 2019-05-11 COMPREHENSIVE Expected: [facility] [place] kamara Pending 00:00:00 METABOLIC PANEL [code 05/11/2019, Med iciannie = 57796-1] Expires: 01/09/2022 Diagnostic Test 2019-05-11 HEMOGLOBIN A1C [code Expected: [facility] Pending 00:00:00 = 4548-4] 05/11/2019, of Medicine Expires: 01/09/2022 Diagnostic Test 2019-05-11 MICROALBUMIN/CREAT Expected: [facility] Pending 00:00:00 URINE RATIO [code = 05/11/2019, of Medic ine 9318-7] Expires: 01/09/2022 Future Scheduled Diabetic foot Memorial Test examination Benavides (regime/therapy) [code = 056922377] Future Scheduled LIPID PANEL [code = Dominick rial Test 05909-9] Bony Future Scheduled COMPREHENSIVE Memorial Test METABOLIC PANEL [code Willie n = 44878-0] Future Scheduled HEMOGLOBIN A1C [code Mem orial Test = 4548-4] Bony Future Scheduled MICROALBUMIN/CREAT Memor ial Test URINE RATIO [code = Bony 9318-7] Future Scheduled INFLUENZA VACCINE Memori al Test (#1) [code = Benavides INFLUENZA VACCINE (#1)] Future Scheduled FLU VACCINE > 6 Memorial Test MONTHS [code = FLU Benavides VACCINE > 6 MONTHS] Future Scheduled Screening for Memorial Test malignant neoplasm of Willie n colon (procedure) [code = 776573986] Future Scheduled Zoster Recombinant Memor ial Test Vaccine (SHINGRIX) (1 Willie n of 2) [code = Zoster Recombinant Vaccine (SHINGRIX) (1 of 2)] Future Scheduled Screening for Memorial Test malignant neoplasm of Willie n breast (procedure) [code = 541633253] Future Scheduled CERVICAL CANCER Memorial Test SCREENING 3 YEAR Benavides FOLLOW UP [code = CERVICAL CANCER SCREENING 3 YEAR FOLLOW UP] Future Scheduled Screening for Memorial Test malignant neoplasm of Willie n cervix (procedure) [code = 566678221] Future Scheduled ANNUAL DIABETIC Memorial Test RETINOPATHY SCREENING Willie n [code = ANNUAL DIABETIC RETINOPATHY SCREENING] Future Scheduled TETANUS SHOT (ADULT) Mem orial Test [code = TETANUS SHOT Benavides (ADULT)] Future Scheduled DTaP,Tdap,and Td Memoria l Test Vaccines (1 - Tdap) Bony [code = DTaP,Tdap,and Td Vaccines (1 - Tdap)] Future Scheduled COLON CANCER Memorial Test SCREENING: Benavides COLONOSCOPY [code = COLON CANCER SCREENING: COLONOSCOPY] Future Scheduled Hepatitis C screening Me morial Test (procedure) [code = Bony 621764900] Future Scheduled COLON CANCER [facility] ege Test SCREENING: of Medicine COLONOSCOPY [code = COLON CANCER SCREENING: COLONOSCOPY] Future Scheduled MAMMOGRAM ANNUAL [facility] Test [code = MAMMOGRAM of Medicin e ANNUAL] Future Scheduled TETANUS SHOT (ADULT) [place] [facility] [employer] Test [code = TETANUS SHOT of Medi cine (ADULT)] Future Scheduled ANNUAL DIABETIC [facility] C ollege Test RETINOPATHY SCREENING of Med icine [code = ANNUAL DIABETIC RETINOPATHY SCREENING] Future Scheduled BMI FOLLOW UP PLAN [employer] Test [code = BMI FOLLOW UP of Med icine PLAN] Future Scheduled HEPATITIS C SCREENING [employer] Test [code = HEPATITIS C of Medic ine SCREENING] Future Scheduled HIV SCREENING [code = [employer] Test HIV SCREENING] of Medicine Future Scheduled CERVICAL CANCER [facility] C ollege Test SCREENING 3 YEAR of Medicine FOLLOW UP [code = CERVICAL CANCER SCREENING 3 YEAR FOLLOW UP] Future Scheduled FLU VACCINE > 6 [facility] C ollege Test MONTHS [code = FLU of Medici ne VACCINE > 6 MONTHS] Future Scheduled Diabetic foot [facility] Col lege Test examination of Medicine (regime/therapy) [code = 282408243] Encounters Start End Encounter Admission Attending Care Care Encounter Source Date/Time Date/Time Type Type Clinicians Facility Department ID 2021-12-04 Outpatient MONI HUANG [facility] [id number] [facility] 16:39:49 TONI 2021-10-03 Outpatient [facility] [id number] [place] 19:57:56 [id number] Health 2021-12-26 2021-12-26 Emergency X , [facility] ERT [id number] Univers 16:43:00 19:12:00 KAYLYNN souza [facility] 2021-12-26 2021-12-26 Emergency [facility] [id number] Univers 16:43:00 19:12:00 Kaylynn DELGADILLO [id number] i [facility] [id number] [facility] [id number] Medi scot 084 Branch 2021-10-26 2021-10-26 Emergency EM Madain, HCAPM [facility] [id number] [facility] 14:17:00 14:43:00 Safi 65 [facility] 2021-10-26 2021-10-26 Emergency EM Madain, HCAPM HCAPM [id number] [facility] 14:17:00 14:17:00 Safi [id number] [facility] 2021-09-29 2021-10-03 Inpatient [facility] [id number] Memoria 22:46:22 23:50:00 r Bony 00 l [facility] 2021-09-29 2021-10-03 Inpatient [facility] [id number] Memoria 22:46:22 23:50:00 r Benavides 00 l [facility] 2021-09-29 2021-10-03 Inpatient E [facility] MED [id number] MHBL 22:09:00 18:50:00 DAMION 2021-09-29 2021-10-03 Outpatient [facility] [place], [id number] 17:46:22 18:50:00 Damion 00 2021-09-29 2021-10-03 [id number] 17:46:22 18:50:00 Damion 00 2019-06-14 2019-06-13 Inpatient E [facility] MED [id number] [facility]BL 12:44:00 19:56:00 2019-06-07 2019-06-07 Emergency [facility] ADC-Emergen [id number] Memoria 17:01:56 18:39:00 r cy l Department Alyson 2019-06-07 2019-06-07 Emergency [place], [facility] [id number] 11:01:56 12:39:00 Cher Delgadillo [id number] [place] [id number] [place] [address] [id number] 2019-01-09 2019-01-09 Office nullFlavo [facility] [id number] [facility] 19:12:13 19:42:13 [facility] 2019-01-09 2019-01-09 Office TYRA Hollis [id number] [facility] 14:12:13 14:42:13 Visit Saul AMBULATOR [id number] College Y [id number] [facility] [id number] [place] [address] e Results Test Description Test Time Test Comments Results Result Comments Source POCT GLUCOSE (AUTOMATED) 2021-12-26 22:14:11 Test Item Value Reference Range Interpretation Comme nts POCT GLU (test code = 0166215825) 596 mg/dL 70-110 Lab Interpretation (test code = 99493-2) [facility] 03:08:00 Test Item Value Reference Range Interpretation Comments Coronavirus (COVID-19) Not Detected (10/02/21 MITCH (test code = 10:08 PM) Coronavirus (COVID-19) MITCH) [facility] 03:08:00 Test Item Value Reference Range Interpretation Comments Coronavirus (COVID-19) Not Detected (10/02/21 MITCH (test code = 10:08 PM) Coronavirus (COVID-19) MITCH) [facility]2022-05-30 15:31:00 Test Item Value Reference Range Interpretation Comments Calcium Lvl (test code = Calcium Lvl) 8.6 8.5-10.5 [place] 519302-05-30 15:31:00 Test Item Value Reference Range Interpretation Comments AGAP (test code = AGAP) 12.1 10.0-20.0 [place] 519302-05-30 15:31:00 Test Item Value Reference Range Interpretation Comments eGFR (test code = eGFR) 12 [place] 627322-05-30 15:31:00 Test Item Value Reference Range Interpretation Comments Segs (test code = Segs) 55.7 45.0-75.0 [place] 627322-05-30 15:31:00 Test Item Value Reference Range Interpretation Comments Lymphocytes (test code = Lymphocytes) 32.7 20.0-40.0 [place] 627322-05-30 15:31:00 Test Item Value Reference Range Interpretation Comments Monocytes (test code = Monocytes) 6.5 2.0-12.0 [place] [address]-05-30 15:31:00 Test Item Value Reference Range Interpretation Comments Eosinophils (test code = 3.8 See_Comment [A utomated message] The Eosinophils) system which ge nerated this result tra nsmitted reference range : <=4.0. The reference r roxana was not used to int erpret this result as normal/abnormal . [place] 627322-05-30 15:31:00 Test Item Value Reference Range Interpretation Comments Basophils (test code = 1.3 See_Comment [Aut omated message] The Basophils) system which ge nerated this result tra nsmitted reference range : <=1.0. The reference r roxana was not used to int erpret this result as normal/abnormal . [place] [address]-05-30 15:31:00 Test Item Value Reference Range Interpretation Comments Neutrophils # (test code = Neutrophils 4.5 1.5-8.1 #) [place] [address]-05-30 15:31:00 Test Item Value Reference Range Interpretation Comments Lymphocytes # (test code = Lymphocytes 2.7 1.0-5.5 #) [place] [address]-05-30 15:31:00 Test Item Value Reference Range Interpretation Comments Monocytes # (test code 0.5 See_Comment [Aut omated message] The = Monocytes #) system which generated this result tra nsmitted reference range : <=0.8. The reference r roxana was not used to int erpret this result as normal/abnormal . [place] [address]-05-30 15:31:00 Test Item Value Reference Range Interpretation Comments Eosinophils # (test code 0.3 See_Comment [A utomated message] The = Eosinophils #) system whic h generated this result tra nsmitted reference range : <=0.5. The reference r roxana was not used to int erpret this result as normal/abnormal . [place] [address]-05-30 15:31:00 Test Item Value Reference Range Interpretation Comments Basophils # (test code 0.1 See_Comment [Aut omated message] The = Basophils #) system which generated this result tra nsmitted reference range : <=0.2. The reference r roxana was not used to int erpret this result as normal/abnormal . [place] 627322-05-30 15:31:00 Test Item Value Reference Range Interpretation Comments WBC (test code = WBC) 8.1 3.7-10.4 [place] [address]-05-30 15:31:00 Test Item Value Reference Range Interpretation Comments RBC (test code = RBC) 3.21 4.20-5.40 [place] [address]-05-30 15:31:00 Test Item Value Reference Range Interpretation Comments Hgb (test code = Hgb) 8.4 12.0-16.0 [place] [address]-05-30 15:31:00 Test Item Value Reference Range Interpretation Comments Hct (test code = Hct) 25.9 36.0-48.0 [place] [address]-05-30 15:31:00 Test Item Value Reference Range Interpretation Comments MCV (test code = MCV) 80.8 80.0-98.0 [place] [address]-05-30 15:31:00 Test Item Value Reference Range Interpretation Comments MCH (test code = MCH) 26.1 pg 27.0-31.0 [place] [address]-05-30 15:31:00 Test Item Value Reference Range Interpretation Comments MCHC (test code = MCHC) 32.4 32.0-36.0 [place] [address]-05-30 15:31:00 Test Item Value Reference Range Interpretation Comments RDW (test code = RDW) 16.7 11.5-14.[address]05-30 15:31:00 Test Item Value Reference Range Interpretation Comments Platelet (test code = Platelet) 278 133-[address]05-30 15:31:00 Test Item Value Reference Range Interpretation Comments MPV (test code = MPV) 9.1 7.4-10.4 [place] 519302-05-30 15:31:00 Test Item Value Reference Range Interpretation Comments Glucose Lvl (test code = Glucose Lvl) 182 70-99 [place] 519302-05-30 15:31:00 Test Item Value Reference Range Interpretation Comments BUN (test code = BUN) 58 7-22 [place] 519302-05-30 15:31:00 Test Item Value Reference Range Interpretation Comments Creatinine Lvl (test code = Creatinine 3.74 0.50-1.40 Lvl) [place] 519302-05-30 15:31:00 Test Item Value Reference Range Interpretation Comments Sodium Lvl (test code = Sodium Lvl) 134 135-145 [place] 519302-05-30 15:31:00 Test Item Value Reference Range Interpretation Comments Potassium Lvl (test code = Potassium 4.1 3.5-5.1 Lvl) [place] 519302-05-30 15:31:00 Test Item Value Reference Range Interpretation Comments Chloride Lvl (test code = Chloride Lvl) 103 95-109 [facility]2022-05-30 15:31:00 Test Item Value Reference Range Interpretation Comments CO2 (test code = CO2) 23 24-32 [place] 627322-05-30 15:31:00 Test Item Value Reference Range Interpretation Comments Eosinophils # (test code 0.3 See_Comment [A utomated message] The = Eosinophils #) system whic h generated this result tra nsmitted reference range : <=0.5. The reference r roxana was not used to int erpret this result as normal/abnormal . [facility]15-39 15:31:00 Test Item Value Reference Range Interpretation Comments Basophils # (test code 0.1 See_Comment [Aut omated message] The = Basophils #) system which generated this result tra nsmitted reference range : <=0.2. The reference r roxana was not used to int erpret this result as normal/abnormal . [facility] HospitalZiwcpobSYGFIQYUOS6890-14-66 15:31:00 Test Item Value Reference Range Interpretation Comments WBC (test code = WBC) 8.1 3.7-10.4 [place] [address]-05-30 15:31:00 Test Item Value Reference Range Interpretation Comments RBC (test code = RBC) 3.21 4.20-5.40 [place] [address]-05-30 15:31:00 Test Item Value Reference Range Interpretation Comments Hgb (test code = Hgb) 8.4 12.0-16.0 [place] [address]-05-30 15:31:00 Test Item Value Reference Range Interpretation Comments Hct (test code = Hct) 25.9 36.0-48.0 [place] [address]-05-30 15:31:00 Test Item Value Reference Range Interpretation Comments MCV (test code = MCV) 80.8 80.0-98.0 [place] [address]-05-30 15:31:00 Test Item Value Reference Range Interpretation Comments MCH (test code = MCH) 26.1 pg 27.0-31.0 [place] [address]-05-30 15:31:00 Test Item Value Reference Range Interpretation Comments MCHC (test code = MCHC) 32.4 32.0-36.0 [place] [address]-05-30 15:31:00 Test Item Value Reference Range Interpretation Comments RDW (test code = RDW) 16.7 11.5-14.5 [place] 627322-05-30 15:31:00 Test Item Value Reference Range Interpretation Comments Platelet (test code = Platelet) 278 133-450 [place] [address]-05-30 15:31:00 Test Item Value Reference Range Interpretation Comments MPV (test code = MPV) 9.1 7.4-10.4 [place] 519302-05-30 15:31:00 Test Item Value Reference Range Interpretation Comments Glucose Lvl (test code = Glucose Lvl) 182 70-99 [place] 519302-05-30 15:31:00 Test Item Value Reference Range Interpretation Comments BUN (test code = BUN) 58 7-22 [place] 519302-05-30 15:31:00 Test Item Value Reference Range Interpretation Comments Creatinine Lvl (test code = Creatinine 3.74 0.50-1.40 Lvl) [place] 519302-05-30 15:31:00 Test Item Value Reference Range Interpretation Comments Sodium Lvl (test code = Sodium Lvl) 134 135-145 [place] 519302-05-30 15:31:00 Test Item Value Reference Range Interpretation Comments Potassium Lvl (test code = Potassium 4.1 3.5-5.1 Lvl) [place] 519302-05-30 15:31:00 Test Item Value Reference Range Interpretation Comments Chloride Lvl (test code = Chloride Lvl) 103 95-109 [place] 519302-05-30 15:31:00 Test Item Value Reference Range Interpretation Comments CO2 (test code = CO2) 23 24-32 [place] 519302-05-30 15:31:00 Test Item Value Reference Range Interpretation Comments Calcium Lvl (test code = Calcium Lvl) 8.6 8.5-10.5 [place] 519302-05-30 15:31:00 Test Item Value Reference Range Interpretation Comments AGAP (test code = AGAP) 12.1 10.0-20.0 [place] 519302-05-30 15:31:00 Test Item Value Reference Range Interpretation Comments eGFR (test code = eGFR) [address]05[address]30 15:31:00 Test Item Value Reference Range Interpretation Comments Segs (test code = Segs) 55.7 45.0-75.0 [place] 627322-05-30 15:31:00 Test Item Value Reference Range Interpretation Comments Lymphocytes (test code = Lymphocytes) 32.7 20.0-40.0 [place] [address]-05-30 15:31:00 Test Item Value Reference Range Interpretation Comments Monocytes (test code = Monocytes) 6.5 2.0-12.0 [place] [address]-05-30 15:31:00 Test Item Value Reference Range Interpretation Comments Eosinophils (test code = 3.8 See_Comment [A utomated message] The Eosinophils) system which ge nerated this result tra nsmitted reference range : <=4.0. The reference r roxana was not used to int erpret this result as normal/abnormal . [place] [address]-05-30 15:31:00 Test Item Value Reference Range Interpretation Comments Basophils (test code = 1.3 See_Comment [Aut omated message] The Basophils) system which ge nerated this result tra nsmitted reference range : <=1.0. The reference r roxana was not used to int erpret this result as normal/abnormal . [place] 627322-05-30 15:31:00 Test Item Value Reference Range Interpretation Comments Neutrophils # (test code = Neutrophils 4.5 1.5-8.1 #) [place] 627322-05-30 15:31:00 Test Item Value Reference Range Interpretation Comments Lymphocytes # (test code = Lymphocytes 2.7 1.0-5.5 #) [place] [address]-05-30 15:31:00 Test Item Value Reference Range Interpretation Comments Monocytes # (test code 0.5 See_Comment [Aut omated message] The = Monocytes #) system which generated this result tra nsmitted reference range : <=0.8. The reference r roxana was not used to int erpret this result as normal/abnormal . [place] 627322-05-29 12:18:00 Test Item Value Reference Range Interpretation Comments Sed Rate (test code = 70 See_Comment [Auto mated message] The Sed Rate) system which ge nerated this result transmit nolvia reference range : <=20. The reference range was not used to interpr et this result as desean l/abnormal. [place] [address]-05-29 12:18:00 Test Item Value Reference Range Interpretation Comments C-REACTIVE PROTEIN (test code = 11.8 C-REACTIVE PROTEIN) [place] 627322-05-29 12:18:00 Test Item Value Reference Range Interpretation Comments Sed Rate (test code = 70 See_Comment [Auto mated message] The Sed Rate) system which ge nerated this result transmit nolvia reference range : <=20. The reference range was not used to interpr et this result as desean l/abnormal. [place] [address]-05-29 12:18:00 Test Item Value Reference Range Interpretation Comments C-REACTIVE PROTEIN (test code = 11.8 C-REACTIVE PROTEIN) [place] 519302-05-29 12:15:00 Test Item Value Reference Range Interpretation Comments Glucose Lvl (test code = Glucose Lvl) 366 70-99 [place] 519302-05-29 12:15:00 Test Item Value Reference Range Interpretation Comments BUN (test code = BUN) 43 7-22 [place] 519302-05-29 12:15:00 Test Item Value Reference Range Interpretation Comments Creatinine Lvl (test code = Creatinine 3.40 0.50-1.40 Lvl) [place] 519302-05-29 12:15:00 Test Item Value Reference Range Interpretation Comments Sodium Lvl (test code = Sodium Lvl) 133 135-145 [place] 519302-05-29 12:15:00 Test Item Value Reference Range Interpretation Comments Potassium Lvl (test code = Potassium 4.9 3.5-5.1 Lvl) [place] [address]-05-29 12:15:00 Test Item Value Reference Range Interpretation Comments Chloride Lvl (test code = Chloride Lvl) 102 95-109 [place] 519302-05-29 12:15:00 Test Item Value Reference Range Interpretation Comments CO2 (test code = CO2) 23 24-32 [place] 519302-05-29 12:15:00 Test Item Value Reference Range Interpretation Comments Calcium Lvl (test code = Calcium Lvl) 8.8 8.5-10.5 [place] 519302-05-29 12:15:00 Test Item Value Reference Range Interpretation Comments AGAP (test code = AGAP) 12.9 10.0-20.0 [facility] 12:15:00 Test Item Value Reference Range Interpretation Comments eGFR (test code = eGFR) [address] [facility] HospitalXgqfingUIGFKCYLIF1290-40-92 12:15:00 Test Item Value Reference Range Interpretation Comments WBC (test code = WBC) 6.7 3.7-10.[address] [facility] HospitalZdupgrfXWXWJTAZOT6932-33-82 12:15:00 Test Item Value Reference Range Interpretation Comments RBC (test code = RBC) 3.22 4.20-5.[address] [facility] HospitalPsetlewFHBSPILCZA5355-43-99 12:15:00 Test Item Value Reference Range Interpretation Comments Hgb (test code = Hgb) 8.8 12.0-16.0 [place] 627322-05-29 12:15:00 Test Item Value Reference Range Interpretation Comments Hct (test code = Hct) 26.5 36.0-48.[address] [facility] HospitalNuroiavNXHCSTTWPK1436-57-21 12:15:00 Test Item Value Reference Range Interpretation Comments MCV (test code = MCV) 82.4 80.0-98.0 [place] [address]-05-29 12:15:00 Test Item Value Reference Range Interpretation Comments MCH (test code = MCH) 27.2 pg 27.0-31.[address] [facility] HospitalFyvyqdgTXDTJDPIOZ9569-40-75 12:15:00 Test Item Value Reference Range Interpretation Comments MCHC (test code = MCHC) 33.0 32.0-36.[address] [facility] HospitalGskvgvkILMZZXHTFQ8547-33-64 12:15:00 Test Item Value Reference Range Interpretation Comments RDW (test code = RDW) 16.3 11.5-14.5 [place] [address]-05-29 12:15:00 Test Item Value Reference Range Interpretation Comments Platelet (test code = Platelet) 286 133-[address] [facility] HospitalCeveolyOQRMMBTKNJ9746-06-07 12:15:00 Test Item Value Reference Range Interpretation Comments MPV (test code = MPV) 8.7 7.4-10.4 [place] 627322-05-29 12:15:00 Test Item Value Reference Range Interpretation Comments Segs (test code = Segs) 54.8 45.0-75.[address] [facility] HospitalZtbyoqhCUUGONRSBR9382-16-64 12:15:00 Test Item Value Reference Range Interpretation Comments Lymphocytes (test code = Lymphocytes) 30.4 20.0-40.0 [place] 627322-05-29 12:15:00 Test Item Value Reference Range Interpretation Comments Monocytes (test code = Monocytes) 7.9 2.0-12.0 [place] 627322-05-29 12:15:00 Test Item Value Reference Range Interpretation Comments Eosinophils (test code = 5.1 See_Comment [A utomated message] The Eosinophils) system which ge nerated this result tra nsmitted reference range : <=4.0. The reference r roxana was not used to int erpret this result as normal/abnormal . [place] 627322-05-29 12:15:00 Test Item Value Reference Range Interpretation Comments Basophils (test code = 1.8 See_Comment [Aut omated message] The Basophils) system which ge nerated this result tra nsmitted reference range : <=1.0. The reference r roxana was not used to int erpret this result as normal/abnormal . [facility] HospitalOdfkdjbNWGIEZOAFP8386-58-52 12:15:00 Test Item Value Reference Range Interpretation Comments Neutrophils # (test code = Neutrophils 3.7 1.5-8.1 #) [facility] HospitalAlbtcarIYDULAMBSW4648-94-21 12:15:00 Test Item Value Reference Range Interpretation Comments Lymphocytes # (test code = Lymphocytes 2.0 1.0-5.5 #) [place] 627322-05-29 12:15:00 Test Item Value Reference Range Interpretation Comments Monocytes # (test code 0.5 See_Comment [Aut omated message] The = Monocytes #) system which generated this result tra nsmitted reference range : <=0.8. The reference r roxana was not used to int erpret this result as normal/abnormal . [facility] HospitalLfthmdrSXTWUJDFKP3372-23-95 12:15:00 Test Item Value Reference Range Interpretation Comments Eosinophils # (test code 0.3 See_Comment [A utomated message] The = Eosinophils #) system whic h generated this result tra nsmitted reference range : <=0.5. The reference r roxana was not used to int erpret this result as normal/abnormal . [place] 627322-05-29 12:15:00 Test Item Value Reference Range Interpretation Comments Basophils # (test code 0.1 See_Comment [Aut omated message] The = Basophils #) system which generated this result tra nsmitted reference range : <=0.2. The reference r roxana was not used to int erpret this result as normal/abnormal . [place] 519302-05-29 12:15:00 Test Item Value Reference Range Interpretation Comments Glucose Lvl (test code = Glucose Lvl) 366 70-99 [place] [address]-05-29 12:15:00 Test Item Value Reference Range Interpretation Comments BUN (test code = BUN) 43 7-22 [place] 519302-05-29 12:15:00 Test Item Value Reference Range Interpretation Comments Creatinine Lvl (test code = Creatinine 3.40 0.50-1.40 Lvl) [place] 519302-05-29 12:15:00 Test Item Value Reference Range Interpretation Comments Sodium Lvl (test code = Sodium Lvl) 133 135-145 [place] 519302-05-29 12:15:00 Test Item Value Reference Range Interpretation Comments Potassium Lvl (test code = Potassium 4.9 3.5-5.1 Lvl) [place] [address]-05-29 12:15:00 Test Item Value Reference Range Interpretation Comments Chloride Lvl (test code = Chloride Lvl) 102 95-109 [place] 519302-05-29 12:15:00 Test Item Value Reference Range Interpretation Comments CO2 (test code = CO2) 23 24-32 [place] 519302-05-29 12:15:00 Test Item Value Reference Range Interpretation Comments Calcium Lvl (test code = Calcium Lvl) 8.8 8.5-10.5 [place] 519302-05-29 12:15:00 Test Item Value Reference Range Interpretation Comments AGAP (test code = AGAP) 12.9 10.0-20.0 [place] 519302-05-29 12:15:00 Test Item Value Reference Range Interpretation Comments eGFR (test code = eGFR) 13 [place] [address]-05-29 12:15:00 Test Item Value Reference Range Interpretation Comments WBC (test code = WBC) 6.7 3.7-10.[address] [facility] HospitalKnmynkiUBHXWJXLOE4818-23-82 12:15:00 Test Item Value Reference Range Interpretation Comments RBC (test code = RBC) 3.22 4.20-5.[address] [facility] HospitalGctvpewRZNNIPHKIF4165-57-25 12:15:00 Test Item Value Reference Range Interpretation Comments Hgb (test code = Hgb) 8.8 12.0-16.[address] [facility] HospitalVzijounUAQTQLOLKF3589-67-04 12:15:00 Test Item Value Reference Range Interpretation Comments Hct (test code = Hct) 26.5 36.0-48.[address] [facility] HospitalQnmgcbbTHSXZOBMWV5037-76-50 12:15:00 Test Item Value Reference Range Interpretation Comments MCV (test code = MCV) 82.4 80.0-98.[address] [facility] HospitalUmzwyjtMKUAAUWOMH4005-67-28 12:15:00 Test Item Value Reference Range Interpretation Comments MCH (test code = MCH) 27.2 pg 27.0-31.[address] [facility] HospitalPrifrtgKJVXQLGWLV5909-93-11 12:15:00 Test Item Value Reference Range Interpretation Comments MCHC (test code = MCHC) 33.0 32.0-36.[address] [facility] HospitalBzqefyjKZEZPCXARV8913-80-18 12:15:00 Test Item Value Reference Range Interpretation Comments RDW (test code = RDW) 16.3 11.5-14.[address] [facility] HospitalHzwogkfQNGZXXUMMM2763-68-84 12:15:00 Test Item Value Reference Range Interpretation Comments Platelet (test code = Platelet) 286 133-[address] [facility] HospitalQyzetqgVBNIHUBBDD0399-49-57 12:15:00 Test Item Value Reference Range Interpretation Comments MPV (test code = MPV) 8.7 7.4-10.[address] [facility] HospitalJeqlwekSQVEWZXMPC7347-98-69 12:15:00 Test Item Value Reference Range Interpretation Comments Segs (test code = Segs) 54.8 45.0-75.[address] [facility] HospitalXjfvvaeHFKOWELMKA5651-43-13 12:15:00 Test Item Value Reference Range Interpretation Comments Lymphocytes (test code = Lymphocytes) 30.4 20.0-40.[address] [facility] HospitalPtrihtnBTKWYGAIYL7015-88-01 12:15:00 Test Item Value Reference Range Interpretation Comments Monocytes (test code = Monocytes) 7.9 2.0-12.0 [place] [address]-05-29 12:15:00 Test Item Value Reference Range Interpretation Comments Eosinophils (test code = 5.1 See_Comment [A utomated message] The Eosinophils) system which ge nerated this result tra nsmitted reference range : <=4.0. The reference r roxana was not used to int erpret this result as normal/abnormal . [facility] HospitalPiyjbnlNRKNCYSJAG1719-41-25 12:15:00 Test Item Value Reference Range Interpretation Comments Basophils (test code = 1.8 See_Comment [Aut omated message] The Basophils) system which ge nerated this result tra nsmitted reference range : <=1.0. The reference r roxana was not used to int erpret this result as normal/abnormal . [facility] HospitalMumxkfaZGIKGDEKYS8705-23-25 12:15:00 Test Item Value Reference Range Interpretation Comments Neutrophils # (test code = Neutrophils 3.7 1.5-8.1 #) [facility] HospitalNzjqhleCDLSRTVKHW5461-28-20 12:15:00 Test Item Value Reference Range Interpretation Comments Lymphocytes # (test code = Lymphocytes 2.0 1.0-5.5 #) [facility] HospitalLtynwyuWYULNVDWIM8990-57-05 12:15:00 Test Item Value Reference Range Interpretation Comments Monocytes # (test code 0.5 See_Comment [Aut omated message] The = Monocytes #) system which generated this result tra nsmitted reference range : <=0.8. The reference r roxana was not used to int erpret this result as normal/abnormal . [facility] HospitalFaymvxsUOJRFNYPPM1136-59-23 12:15:00 Test Item Value Reference Range Interpretation Comments Eosinophils # (test code 0.3 See_Comment [A utomated message] The = Eosinophils #) system whic h generated this result tra nsmitted reference range : <=0.5. The reference r roxana was not used to int erpret this result as normal/abnormal . [facility] HospitalSnrytbxUOCDTUGWCI3339-63-19 12:15:00 Test Item Value Reference Range Interpretation Comments Basophils # (test code 0.1 See_Comment [Aut omated message] The = Basophils #) system which generated this result tra nsmitted reference range : <=0.2. The reference r roxana was not used to int erpret this result as normal/abnormal . [facility] SQJOWSJR9012-21-76 11:54:00 Test Item Value Reference Range Interpretation Comments MRSA by PCR (test Negative (10/01/21 6:54 code = MRSA by PCR) AM) [facility] - [id number] 11:54:00 Test Item Value Reference Range Interpretation Comments MRSA by PCR (test Negative (10/01/21 6:54 code = MRSA by PCR) AM) [place] 80160022-05-28 21:25:00 Test Item Value Reference Range Interpretation Comments Vancomycin AUC (test code = Vancomycin 26.2 AUC) [place] 376932-05-28 21:25:00 Test Item Value Reference Range Interpretation Comments Vancomycin AUC (test code = Vancomycin 26.2 AUC) [facility]2022-05-28 10:23:00 Test Item Value Reference Range Interpretation Comments Glucose Lvl (test code = Glucose Lvl) 365 70-99 [facility]2022-05-28 10:23:00 Test Item Value Reference Range Interpretation Comments BUN (test code = BUN) 29 11-24 [facility]2022-05-28 10:23:00 Test Item Value Reference Range Interpretation Comments Creatinine Lvl (test code = Creatinine 3.31 0.50-1.40 Lvl) [facility]2022-05-28 10:23:00 Test Item Value Reference Range Interpretation Comments Sodium Lvl (test code = Sodium Lvl) 136 135-145 [facility]2022-05-28 10:23:00 Test Item Value Reference Range Interpretation Comments Potassium Lvl (test code = Potassium 4.5 3.5-5.1 Lvl) [facility]2022-05-28 10:23:00 Test Item Value Reference Range Interpretation Comments Chloride Lvl (test code = Chloride Lvl) 104 95-109 [facility]2022-05-28 10:23:00 Test Item Value Reference Range Interpretation Comments CO2 (test code = CO2) [facility]2022-05-28 10:23:00 Test Item Value Reference Range Interpretation Comments Calcium Lvl (test code = Calcium Lvl) 8.5 8.5-10.5 [facility]2022-05-28 10:23:00 Test Item Value Reference Range Interpretation Comments AGAP (test code = AGAP) 13.5 10.0-20.0 [facility]2022-05-28 10:23:00 Test Item Value Reference Range Interpretation Comments eGFR (test code = eGFR) [address] [facility] HospitalYtfjzobINKCAGRRRN2388-90-67 10:23:00 Test Item Value Reference Range Interpretation Comments WBC (test code = WBC) 7.8 3.7-10.[address] [facility] HospitalLnilacbXXBTXMIXCW9592-45-58 10:23:00 Test Item Value Reference Range Interpretation Comments RBC (test code = RBC) 3.29 4.20-5.[address] [facility] HospitalBulpdvvKXWPALCROD1181-42-79 10:23:00 Test Item Value Reference Range Interpretation Comments Hgb (test code = Hgb) 8.4 12.0-16.[address] [facility] HospitalQoszutdRUOCIMVKAE2896-75-01 10:23:00 Test Item Value Reference Range Interpretation Comments Hct (test code = Hct) 26.5 36.0-48.[address] [facility] HospitalWoymoikRSHZGADCIC7648-33-66 10:23:00 Test Item Value Reference Range Interpretation Comments MCV (test code = MCV) 80.5 80.0-98.[address] [facility] HospitalNbddjjsSPURXXJEFN7086-82-18 10:23:00 Test Item Value Reference Range Interpretation Comments MCH (test code = MCH) 25.7 pg 27.0-31.[address] [facility] HospitalNptwqrnBTDZNJVTTB1356-84-06 10:23:00 Test Item Value Reference Range Interpretation Comments MCHC (test code = MCHC) 31.9 32.0-36.[address] [facility] HospitalPnbvfvzHQBOXGMZXV6760-62-00 10:23:00 Test Item Value Reference Range Interpretation Comments RDW (test code = RDW) 16.4 11.5-14.[address] [facility] HospitalIozodtkFNOUNAKABH5135-84-29 10:23:00 Test Item Value Reference Range Interpretation Comments Platelet (test code = Platelet) 281 133-[address] [facility] HospitalTwzqqmsAJLJHMERCF8888-84-69 10:23:00 Test Item Value Reference Range Interpretation Comments MPV (test code = MPV) 8.7 7.4-10.[address] [facility] HospitalRbctevxZVBUJHGHWR7226-94-11 10:23:00 Test Item Value Reference Range Interpretation Comments Segs (test code = Segs) 58.3 45.0-75.0 [place] 627322-05-28 10:23:00 Test Item Value Reference Range Interpretation Comments Lymphocytes (test code = Lymphocytes) 28.9 20.0-40.[address] [facility] HospitalJjtqhtrCTIQXPIMLZ4568-11-72 10:23:00 Test Item Value Reference Range Interpretation Comments Monocytes (test code = Monocytes) 7.8 2.0-12.[address] [facility] HospitalZmxpkkdWUXRFGKRHH3354-50-24 10:23:00 Test Item Value Reference Range Interpretation Comments Eosinophils (test code = 3.6 See_Comment [A utomated message] The Eosinophils) system which ge nerated this result tra nsmitted reference range : <=4.0. The reference r roxana was not used to int erpret this result as normal/abnormal . [facility] HospitalZlbwtubTDIBNBNOIT1683-37-82 10:23:00 Test Item Value Reference Range Interpretation Comments Basophils (test code = 1.4 See_Comment [Aut omated message] The Basophils) system which ge nerated this result tra nsmitted reference range : <=1.0. The reference r roxana was not used to int erpret this result as normal/abnormal . [facility] HospitalGzyfifvZOLZRRPHYM9371-45-70 10:23:00 Test Item Value Reference Range Interpretation Comments Neutrophils # (test code = Neutrophils 4.5 1.5-8.1 #) [facility] HospitalJlmpvxdILQWFLWWOS1341-56-26 10:23:00 Test Item Value Reference Range Interpretation Comments Lymphocytes # (test code = Lymphocytes 2.2 1.0-5.5 #) [facility] HospitalPsacpcwUIIPRQEVRM8993-50-73 10:23:00 Test Item Value Reference Range Interpretation Comments Monocytes # (test code 0.6 See_Comment [Aut omated message] The = Monocytes #) system which generated this result tra nsmitted reference range : <=0.8. The reference r roxana was not used to int erpret this result as normal/abnormal . [facility] HospitalUepgixcVVZNBYCVSG0956-28-40 10:23:00 Test Item Value Reference Range Interpretation Comments Eosinophils # (test code 0.3 See_Comment [A utomated message] The = Eosinophils #) system whic h generated this result tra nsmitted reference range : <=0.5. The reference r roxana was not used to int erpret this result as normal/abnormal . [facility] HospitalYdmrfoyYAFWQMUCIV9023-44-61 10:23:00 Test Item Value Reference Range Interpretation Comments Basophils # (test code 0.1 See_Comment [Aut omated message] The = Basophils #) system which generated this result tra nsmitted reference range : <=0.2. The reference r roxana was not used to int erpret this result as normal/abnormal . [facility]QzsqpkjKPXGBWLHTG5521-67-04 10:23:00 Test Item Value Reference Range Interpretation Comments Sed Rate (test code = 70 See_Comment [Auto mated message] The Sed Rate) system which ge nerated this result transmit nolvia reference range : <=20. The reference range was not used to interpr et this result as desean l/abnormal. [facility]manKrnycvkVFMCOWAGDA7200-49-11 10:23:00 Test Item Value Reference Range Interpretation Comments C-REACTIVE PROTEIN (test code = 13.1 C-REACTIVE PROTEIN) [facility]JeuhazxEKSEHE7721-78-80 10:23:00 Test Item Value Reference Range Interpretation Comments Trig (test code = Trig) 304 [facility] SystemYbjbowoSQWZKY2951-37-55 10:23:00 Test Item Value Reference Range Interpretation Comments Chol (test code = Chol) 223 [facility] SystemOzskgmcIGCSOR7482-49-18 10:23:00 Test Item Value Reference Range Interpretation Comments HDL (test code = HDL) 34 [facility] SystemXhvzwwhIEFWPN7411-21-75 10:23:00 Test Item Value Reference Range Interpretation Comments CHD Risk (test code = CHD Risk) 6.56 1 3.90-5.80 [facility] SystemUxwoimyLHKEXH3621-23-99 10:23:00 Test Item Value Reference Range Interpretation Comments LDL (Calculated) (test code = LDL 128 (Calculated)) [facility] SystemJfvpshcJAKWIX0855-86-45 10:23:00 Test Item Value Reference Range Interpretation Comments VLDL (test code = VLDL) 61 1 [facility]manHeqoetfHZEGUWGSBJ0649-44-53 10:23:00 Test Item Value Reference Range Interpretation Comments Vancomycin AUC (test code = Vancomycin 37.8 AUC) [facility] [id number] 10:23:00 Test Item Value Reference Range Interpretation Comments Glucose Lvl (test code = Glucose Lvl) 365 70-99 [facility] [id number] 10:23:00 Test Item Value Reference Range Interpretation Comments BUN (test code = BUN) 29 7-22 [place] 519302-05-28 10:23:00 Test Item Value Reference Range Interpretation Comments Creatinine Lvl (test code = Creatinine 3.31 0.50-1.40 Lvl) [place] 519302-05-28 10:23:00 Test Item Value Reference Range Interpretation Comments Sodium Lvl (test code = Sodium Lvl) 136 135-145 [place] 519302-05-28 10:23:00 Test Item Value Reference Range Interpretation Comments Potassium Lvl (test code = Potassium 4.5 3.5-5.1 Lvl) [place] 519302-05-28 10:23:00 Test Item Value Reference Range Interpretation Comments Chloride Lvl (test code = Chloride Lvl) 104 95-109 [place]302-05-28 10:23:00 Test Item Value Reference Range Interpretation Comments CO2 (test code = CO2) 23 24-32 [place] 519302-05-28 10:23:00 Test Item Value Reference Range Interpretation Comments Calcium Lvl (test code = Calcium Lvl) 8.5 8.5-10.5 [place]302-05-28 10:23:00 Test Item Value Reference Range Interpretation Comments AGAP (test code = AGAP) 13.5 10.0-20.0 [place]302-05-28 10:23:00 Test Item Value Reference Range Interpretation Comments eGFR (test code = eGFR) 14 [place] 627322-05-28 10:23:00 Test Item Value Reference Range Interpretation Comments WBC (test code = WBC) 7.8 3.7-10.4 [place] [address]-05-28 10:23:00 Test Item Value Reference Range Interpretation Comments RBC (test code = RBC) 3.29 4.20-5.40 [place] [address]-05-28 10:23:00 Test Item Value Reference Range Interpretation Comments Hgb (test code = Hgb) 8.4 12.0-16.0 [place] [address]-05-28 10:23:00 Test Item Value Reference Range Interpretation Comments Hct (test code = Hct) 26.5 36.0-48.0 [place] 627322-05-28 10:23:00 Test Item Value Reference Range Interpretation Comments MCV (test code = MCV) 80.5 80.0-98.[address] [id number] 10:23:00 Test Item Value Reference Range Interpretation Comments MCH (test code = MCH) 25.7 pg 27.0-31.[address] [facility] HospitalTwyfmgqUSEKCJIRGU6444-05-72 10:23:00 Test Item Value Reference Range Interpretation Comments MCHC (test code = MCHC) 31.9 32.0-36.[address] [facility] HospitalEoycdtlKEKHPGTTTN7741-26-80 10:23:00 Test Item Value Reference Range Interpretation Comments RDW (test code = RDW) 16.4 11.5-14.5 [place] [id number] 10:23:00 Test Item Value Reference Range Interpretation Comments Platelet (test code = Platelet) 281 133-[address] [facility] HospitalGcmwxwiMYZOPWVCWZ2089-92-78 10:23:00 Test Item Value Reference Range Interpretation Comments MPV (test code = MPV) 8.7 7.4-10.[address] [facility] Hos[id number] 10:23:00 Test Item Value Reference Range Interpretation Comments Segs (test code = Segs) 58.3 45.0-75.[address] [facility] HospitalFwvuqtmJTFPYBGKVU9851-17-44 10:23:00 Test Item Value Reference Range Interpretation Comments Lymphocytes (test code = Lymphocytes) 28.9 20.0-40.[address] [facility] Hospit[id number] 10:23:00 Test Item Value Reference Range Interpretation Comments Monocytes (test code = Monocytes) 7.8 2.0-12.0 [place] [id number] 10:23:00 Test Item Value Reference Range Interpretation Comments Eosinophils (test code = 3.6 See_Comment [A utomated message] The Eosinophils) system which ge nerated this result tra nsmitted reference range : <=4.0. The reference r roxana was not used to int erpret this result as normal/abnormal . [facility] HospitalBqwtqnhWBVOKBLWHD6387-38-96 10:23:00 Test Item Value Reference Range Interpretation Comments Basophils (test code = 1.4 See_Comment [Aut omated message] The Basophils) system which ge nerated this result tra nsmitted reference range : <=1.0. The reference r roxana was not used to int erpret this result as normal/abnormal . [facility] HospitalSnxgiahJZBOXRFGXK3938-33-19 10:23:00 Test Item Value Reference Range Interpretation Comments Neutrophils # (test code = Neutrophils 4.5 1.5-8.1 #) [facility] HospitalZmxfyibCKYAJEEZLD7332-93-75 10:23:00 Test Item Value Reference Range Interpretation Comments Lymphocytes # (test code = Lymphocytes 2.2 1.0-5.5 #) [place] 627322-05-28 10:23:00 Test Item Value Reference Range Interpretation Comments Monocytes # (test code 0.6 See_Comment [Aut omated message] The = Monocytes #) system which generated this result tra nsmitted reference range : <=0.8. The reference r roxana was not used to int erpret this result as normal/abnormal . [facility] HospitalNcygvavWQRNIVDMDG4045-85-87 10:23:00 Test Item Value Reference Range Interpretation Comments Eosinophils # (test code 0.3 See_Comment [A utomated message] The = Eosinophils #) system whic h generated this result tra nsmitted reference range : <=0.5. The reference r roxana was not used to int erpret this result as normal/abnormal . [facility] HospitalRinedwtKCFRYSWMUL7010-10-22 10:23:00 Test Item Value Reference Range Interpretation Comments Basophils # (test code 0.1 See_Comment [Aut omated message] The = Basophils #) system which generated this result tra nsmitted reference range : <=0.2. The reference r roxana was not used to int erpret this result as normal/abnormal . [facility] HospitalRfhsoooGZRUYNKSPT0077-73-38 10:23:00 Test Item Value Reference Range Interpretation Comments Sed Rate (test code = 70 See_Comment [Auto mated message] The Sed Rate) system which ge nerated this result transmit nolvia reference range : <=20. The reference range was not used to interpr et this result as desean l/abnormal. [facility]EB[facility] 10:23:00 Test Item Value Reference Range Interpretation Comments C-REACTIVE PROTEIN (test code = 13.1 C-REACTIVE PROTEIN) [place] [id number] 10:23:00 Test Item Value Reference Range Interpretation Comments Trig (test code = Trig) 304 [place] [id number] 10:23:00 Test Item Value Reference Range Interpretation Comments Chol (test code = Chol) 223 [facility]CeuxipfZUPXCA4738-32-12 10:23:00 Test Item Value Reference Range Interpretation Comments HDL (test code = HDL) 34 [facility] SystemSycffviXQXPVS4965-74-59 10:23:00 Test Item Value Reference Range Interpretation Comments CHD Risk (test code = CHD Risk) 6.56 1 3.90-5.80 [facility] ZtthgoxYJBIPR6112-31-73 10:23:00 Test Item Value Reference Range Interpretation Comments LDL (Calculated) (test code = LDL 128 (Calculated)) [facility] SystemEhxssohKCBLQC4945-93-58 10:23:00 Test Item Value Reference Range Interpretation Comments VLDL (test code = VLDL) 61 1 [facility]cyqohvBNKTWZCYTG3399-50-18 10:23:00 Test Item Value Reference Range Interpretation Comments Vancomycin AUC (test code = Vancomycin 37.8 AUC) [facility] [id number] 04:16:00 Test Item Value Reference Range Interpretation Comments Lactic Acid Lvl (test code = Lactic 0.6 0.5-2.2 Acid Lvl) [facility] [id number] 04:16:00 Test Item Value Reference Range Interpretation Comments Lactic Acid Lvl (test code = Lactic 0.6 0.5-2.2 Acid Lvl) [facility] AND [id number] 02:20:00 Test Item Value Reference Range Interpretation Comments UA Color (test code = Yellow *NA*(09/29/21 UA Color) 9:20 PM) [facility] AND [id number] 02:20:00 Test Item Value Reference Range Interpretation Comments UA Turbidity (test code Slight *ABN*(09/29/21 = UA Turbidity) 9:20 PM) [facility] [id number] 02:20:00 Test Item Value Reference Range Interpretation Comments UA Spec Grav (test code = UA Spec 1.017 1 Grav) [facility] AND [id number] 02:20:00 Test Item Value Reference Range Interpretation Comments UA pH (test code = UA pH) 6.0 1 5.0-8.0 [facility] [id number] 02:20:00 Test Item Value Reference Range Interpretation Comments UA Protein (test code = UA Protein) 100 mg/dL [facility] AND [id number] 02:20:00 Test Item Value Reference Range Interpretation Comments UA Glucose (test code = UA >=500 mg/dL Glucose) [facility] AND [id number] 02:20:00 Test Item Value Reference Range Interpretation Comments UA Ketones (test code = UA Negative mg/dL Ketones) [facility] AND [id number] 02:20:00 Test Item Value Reference Range Interpretation Comments UA Bili (test code = Negative *NA*(09/29/21 UA Bili) 9:20 PM) [facility] AND [id number] 02:20:00 Test Item Value Reference Range Interpretation Comments UA Blood (test code = Negative (09/29/21 9:20 UA Blood) PM) [facility] AND [id number] 02:20:00 Test Item Value Reference Range Interpretation Comments UA Nitrite (test code Negative (09/29/21 9:20 = UA Nitrite) PM) [facility] AND [id number] 02:20:00 Test Item Value Reference Range Interpretation Comments UA Leuk Est (test Negative (09/29/21 9:20 code = UA Leuk Est) PM) [facility] AND [id number] 02:20:00 Test Item Value Reference Range Interpretation Comments UA Sq Epi (test code = UA Sq Epi) Few /LPF [facility] AND [id number] 02:20:00 Test Item Value Reference Range Interpretation Comments UA WBC (test code = 1 See_Comment [Automa nolvia message] The UA WBC) system which ge nerated this result transmit nolvia reference range : <=5. The reference range was not used to interpr et this result as desean l/abnormal. [facility] AND [id number] 02:20:00 Test Item Value Reference Range Interpretation Comments UA RBC (test code = 2 See_Comment [Automa nolvia message] The UA RBC) system which ge nerated this result transmit nolvia reference range : <=2. The reference range was not used to interpr et this result as desean l/abnormal. [facility] AND [id number] 02:20:00 Test Item Value Reference Range Interpretation Comments UA Bacteria (test code = UA Occasional /HPF Bacteria) [facility] AND [id number] 02:20:00 Test Item Value Reference Range Interpretation Comments UA Urobilinogen (test code = UA <=1.0 mg/dL 0.1-1.0 Urobilinogen) [facility] AND [id number] 02:20:00 Test Item Value Reference Range Interpretation Comments UA Color (test code = Yellow *NA*(09/29/21 UA Color) 9:20 PM) [facility] AND [id number] 02:20:00 Test Item Value Reference Range Interpretation Comments UA Turbidity (test code Slight *ABN*(09/29/21 = UA Turbidity) 9:20 PM) [facility] AND [id number] 02:20:00 Test Item Value Reference Range Interpretation Comments UA Spec Grav (test code = UA Spec 1.017 1 Grav) [facility] AND [id number] 02:20:00 Test Item Value Reference Range Interpretation Comments UA pH (test code = UA pH) 6.0 1 5.0-8.0 [facility] AND [id number] 02:20:00 Test Item Value Reference Range Interpretation Comments UA Protein (test code = UA Protein) 100 mg/dL [facility] AND [id number] 02:20:00 Test Item Value Reference Range Interpretation Comments UA Glucose (test code = UA >=500 mg/dL Glucose) [facility] AND [id number] 02:20:00 Test Item Value Reference Range Interpretation Comments UA Ketones (test code = UA Negative mg/dL Ketones) [facility] AND [id number] 02:20:00 Test Item Value Reference Range Interpretation Comments UA Bili (test code = Negative *NA*(09/29/21 UA Bili) 9:20 PM) [facility] AND [id number] 02:20:00 Test Item Value Reference Range Interpretation Comments UA Blood (test code = Negative (09/29/21 9:20 UA Blood) PM) [facility] AND [id number] 02:20:00 Test Item Value Reference Range Interpretation Comments UA Nitrite (test code Negative (09/29/21 9:20 = UA Nitrite) PM) [facility] AND [id number] 02:20:00 Test Item Value Reference Range Interpretation Comments UA Leuk Est (test Negative (09/29/21 9:20 code = UA Leuk Est) PM) [facility] [id number] 02:20:00 Test Item Value Reference Range Interpretation Comments UA Sq Epi (test code = UA Sq Epi) Few /LPF [facility] [id number] 02:20:00 Test Item Value Reference Range Interpretation Comments UA WBC (test code = 1 See_Comment [Automa nolvia message] The UA WBC) system which ge nerated this result transmit nolvia reference range : <=5. The reference range was not used to interpr et this result as desean l/abnormal. [facility] [id number] 02:20:00 Test Item Value Reference Range Interpretation Comments UA RBC (test code = 2 See_Comment [Automa nolvia message] The UA RBC) system which ge nerated this result transmit nolvia reference range : <=2. The reference range was not used to interpr et this result as desean l/abnormal. [facility] [id number] 02:20:00 Test Item Value Reference Range Interpretation Comments UA Bacteria (test code = UA Occasional /HPF Bacteria) [facility] [id number] 02:20:00 Test Item Value Reference Range Interpretation Comments UA Urobilinogen (test code = UA <=1.0 mg/dL 0.1-1.0 Urobilinogen) [facility] [id number] 01:03:00 Test Item Value Reference Range Interpretation Comments Total CK (test code = Total CK) 14 12-191 [facility] [employer] [id number] 01:03:00 Test Item Value Reference Range Interpretation Comments Procalcitonin Lvl (test no gt See_Comment [Au tomated message] code = Procalcitonin Lvl) Th e system which generated this result transmitted ref erence range: <=0.10. The reference range was not used to interpr et this result as normal/abnormal . [facility] [employer] [id number] 01:03:00 Test Item Value Reference Range Interpretation Comments B/C Ratio (test code = B/C Ratio) 7 1 6-25 [facility] [employer] [id number] 01:03:00 Test Item Value Reference Range Interpretation Comments Total Protein (test code = Total 8.2 6.4-8.4 Protein) [place] [address]-05-28 01:03:00 Test Item Value Reference Range Interpretation Comments Albumin Lvl (test code = Albumin Lvl) 3.3 3.5-5.0 [place] [address]-05-28 01:03:00 Test Item Value Reference Range Interpretation Comments Globulin (test code = Globulin) 4.9 2.7-4.2 [place] [address]-05-28 01:03:00 Test Item Value Reference Range Interpretation Comments A/G Ratio (test code = A/G Ratio) 0.7 1 0.7-1.6 [place] [address]-05-28 01:03:00 Test Item Value Reference Range Interpretation Comments ALT (test code = ALT) 13 See_Comment [Auto mated message] The system which ge nerated this result transmit nolvia reference range : <=65. The reference range was not used to interpr et this result as desean l/abnormal. [place] [id number] 01:03:00 Test Item Value Reference Range Interpretation Comments AST (test code = AST) 5 See_Comment [Auto mated message] The system which ge nerated this result transmit nolvia reference range : <=37. The reference range was not used to interpr et this result as desean l/abnormal. [place] [address]-05-28 01:03:00 Test Item Value Reference Range Interpretation Comments Alk Phos (test code = Alk Phos) 99 39-136 [place] [address]-05-28 01:03:00 Test Item Value Reference Range Interpretation Comments Bili Total (test code = Bili Total) 0.3 0.2-1.3 [place] [address]-05-28 01:03:00 Test Item Value Reference Range Interpretation Comments Lactic Acid Lvl (test code = Lactic 1.3 0.5-2.2 Acid Lvl) [place] [address]-05-28 01:03:00 Test Item Value Reference Range Interpretation Comments PT (test code = PT) 13.8 s 12.0-14.7 [place] [address]-05-28 01:03:00 Test Item Value Reference Range Interpretation Comments INR (test code = INR) 1.07 1 0.85-1.17 [id number] 01:03:00 Test Item Value Reference Range Interpretation Comments PTT (test code = PTT) 33.2 s 22.9-35.8 [facility] [id number] 01:03:00 Test Item Value Reference Range Interpretation Comments Hgb A1C (test code = Hgb A1C) 10.9 [facility] [id number] 01:03:00 Test Item Value Reference Range Interpretation Comments Total CK (test code = Total CK) 14 12-191 [facility] [id number] 01:03:00 Test Item Value Reference Range Interpretation Comments Procalcitonin Lvl (test no gt See_Comment [Au tomated message] code = Procalcitonin Lvl) Th e system which generated this result transmitted ref erence range: <=0.10. The reference range was not used to interpr et this result as normal/abnormal . [facility] [id number] 01:03:00 Test Item Value Reference Range Interpretation Comments B/C Ratio (test code = B/C Ratio) 7 1 6-25 [facility] [id number] 01:03:00 Test Item Value Reference Range Interpretation Comments Total Protein (test code = Total 8.2 6.4-8.4 Protein) [facility]2022-05-28 01:03:00 Test Item Value Reference Range Interpretation Comments Albumin Lvl (test code = Albumin Lvl) 3.3 3.5-5.0 [facility] [id number] 01:03:00 Test Item Value Reference Range Interpretation Comments Globulin (test code = Globulin) 4.9 2.7-4.2 [facility] [id number] 01:03:00 Test Item Value Reference Range Interpretation Comments A/G Ratio (test code = A/G Ratio) 0.7 1 0.7-1.6 [facility]2022-05-28 01:03:00 Test Item Value Reference Range Interpretation Comments ALT (test code = ALT) 13 See_Comment [Auto mated message] The system which ge nerated this result transmit nolvia reference range : <=65. The reference range was not used to interpr et this result as desean l/abnormal. [facility] [id number] 01:03:00 Test Item Value Reference Range Interpretation Comments AST (test code = AST) 5 See_Comment [Auto mated message] The system which ge nerated this result transmit nolvia reference range : <=37. The reference range was not used to interpr et this result as desean l/abnormal. [facility] [id number] 01:03:00 Test Item Value Reference Range Interpretation Comments Alk Phos (test code = Alk Phos) 99 39-136 [facility] [id number] 01:03:00 Test Item Value Reference Range Interpretation Comments Bili Total (test code = Bili Total) 0.3 0.2-1.3 [facility] [id number] 01:03:00 Test Item Value Reference Range Interpretation Comments Lactic Acid Lvl (test code = Lactic 1.3 0.5-2.2 Acid Lvl) [id number] 01:03:00 Test Item Value Reference Range Interpretation Comments PT (test code = PT) 13.8 s 12.0-14.7 [id number] 01:03:00 Test Item Value Reference Range Interpretation Comments INR (test code = INR) 1.07 1 0.85-1.17 [id number] 01:03:00 Test Item Value Reference Range Interpretation Comments PTT (test code = PTT) 33.2 s 22.9-35.8 [facility] [id number] 01:03:00 Test Item Value Reference Range Interpretation Comments Hgb A1C (test code = Hgb A1C) 10.9 [facility] HEMOGLOBIN [id number] 19:55:00 Test Item Value Reference Range Interpretation Comments <td 7.8 4-5.6 ID="[id number]">HEMOGLOBIN A1C</td><td><span style="flagData">7.8</span><span style="flagData"> (A)</span></td><td>4.0 - 5.6 %</td><td/><td ID="[id number]"/> (test code = <td ID="[id number]">HEM OGLOBIN A1C</td><td><span style="flagData">7.8</span><span style="flagData"> (A)</span></td><td>4.0 - 5.6 %</td><td/><td ID="[id number]"/>) [facility] HEMOGLOBIN [id number] 19:55:00 Test Item Value Reference Range Interpretation Comments Lab Interpretation (test code = Lab Abnormal Interpretation) [facility] HEMOGLOBIN [id number] 19:55:00 Test Item Value Reference Range Interpretation Comments HEMOGLOBIN A1C (test code = 4548-4) 7.8 % 4-5.6 A Lab Interpretation (test code = Abnormal 95025-2) [facility]
[2021-12-31 14:20] LABS: Absolute Lymphocytes (CBC) 1.9 K/uL (0.7-4.9); Hematocrit 25.9 % (36.0-45.0); Lymphocytes % 25.3 % (15.3-44.8); MCV 82.6 fL (80-100); MPV 8.5 fL (7.6-11.3); RBC Red Blood Cell Count 3.13 M/uL (3.86-4.86)
--- NOTE | 2021-12-31 14:20 | RAD REPORT ---
EXAM DESCRIPTION: CT - Ct Stroke Brain Wo Cont - 12/31/2021 2:15 pm CLINICAL HISTORY: AMS COMPARISON: HEAD BRAIN W O CONTRAST dated 01/07/2013 TECHNIQUE: All CT scans are performed using dose optimization technique as appropriate and may inclu de automated exposure control or mA/KV adjustment according to patient size. FINDINGS: No intracranial hemorrhage, hydrocephalus or extra-axial fluid collection.No areas of brai n edema or evidence of midline shift. The paranasal sinuses and mastoids are clear. The calvarium is intact. IMPRESSION: No acute intracranial abnormality. Findings discussed with Dr. Sagastume by Dr. Gonzalez at 1410 on 12/31/21
[2021-12-31 14:28] LABS: Protime INR 0.98
[2021-12-31] MEDS ORDERED: DIPHENHYDRAMINE 50 MG/ML VIAL ONE (14:34)
[2021-12-31] MEDS ORDERED: METHYLPREDNISOLONE 125 MG INJ ONE (14:34)
[2021-12-31 14:40] LABS: Potassium 4.3 mmol/L (3.5-5.1)
--- NOTE | 2021-12-31 15:20 | RAD REPORT ---
EXAM DESCRIPTION: RAD - Chest Single View - 12/31/2021 3:06 pm CLINICAL HISTORY: AMS COMPARISON: CHEST SINGLE VIEW dated 06/24/2015; CHEST SINGLE VIEW dated 10/30/2010; CHEST SINGLE VIEW dated 10/21/2010 FINDINGS: Lines: None. Lungs: No evidence of edema or pneumonia. Pleural: No significant pleural effusions or pneumothorax. Cardiac: Mild cardiomegaly. Bones: No acute fractures. Other: IMPRESSION: No acute cardiopulmonary disease.
[2021-12-31 15:38] LABS: Urine Blood Trace-intact (Negative); Urine Glucose 2+ (Negative); Urine Protein 1+ (Negative); Urine pH 5.5 (5.0-7.0)
[2021-12-31 16:09] LABS: Urine Bacteria <20 /HPF (<20); Urine RBC <5 /HPF (None Seen)
[2021-12-31] MEDS ORDERED: INSULIN -REGULAR HUMAN 50 UNIT/0.5 ML ML ONE (16:16)
--- NOTE | 2021-12-31 16:34 | ER ---
Nurse's Notes [facility] Name: Zohreh Lee Age: 66 yrs Sex: Female : 1955 Arrival Date: 12/31/2021 Time: 14:05 Bed 7 Private MD: Diagnosis: Acute kidney failure, unspecified;Altered mental status, unspecified Presentation: 12/31 14:05 Chief complaint: EMS states: AMS that reportedly began 30 minutes ago. EMS reports that ss patient was slumped over to the side in a chair outside with dirt and feces on her. Family member at scene reports that patient has a hx of mastocytosis and that last time something similar occurred it was a result in a flare up. Coronavirus screen: Client denies travel out of the [place] in the last 14 days. Ebola Screen: Patient denies exposure to infectious person. Patient denies travel to an Ebola-affected area in the 21 days before illness onset. Onset of symptoms was December 31, 2021. 14:05 Method Of Arrival: EMS: [facility] 14:05 Acuity: BALA 2 ss 14:15 Initial Sepsis Screen: Does the patient meet any 2 criteria? No. Patient's initial ph sepsis screen is negative. Does the patient have a suspected source of infection? Yes: Skin breakdown/wound. Risk Assessment: Do you want to hurt yourself or someone else? Patient reports no desire to harm self or others. Triage Assessment: 14:16 General: Appears in no apparent distress. uncomfortable, unkempt, Behavior is anxious. ph Pain: Noted to be grimacing. Neuro: Level of Consciousness is awake, alert, obeys commands, Oriented to person, situation, Moves all extremities. Speech is slurred, pt appears to be speaking through clenched teeth. Intact. Respiratory: Reports shortness of breath Airway is patent Respiratory effort is even, unlabored, Respiratory pattern is regular, symmetrical. Derm: Skin is normal, Skin temperature is warm. Derm: Wound noted dorsum of bilateral feet, pt states, " They are from fire ant bites that won't heal.". Musculoskeletal: Circulation, motion, and sensation intact. Historical: - Allergies: 14:05 Albuterol; ss 14:05 steroids; ss - PMHx: 14:05 Mastocytosis; ss - Immunization history:: Adult Immunizations unknown. - Social history:: Smoking status: unknown. - Family history:: not pertinent. - Hospitalizations: : No recent hospitalization is reported. Screenin:14 Abuse screen: Denies threats or abuse. Denies injuries from another. Nutritional ph screening: No deficits noted. Tuberculosis screening: No symptoms or risk factors identified. Fall Risk None identified. 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 14:10 General: General: SEE TRIAGE ASSESSMENT. ph 15:35 Reassessment: Patient appears in no apparent distress at this time. Patient and/or ph family updated on plan of care and expected duration. Pain level reassessed. Patient is alert, oriented x 3, equal unlabored respirations, skin warm/dry/pink. Pt awake and alert, speech is clear, sitting up in bed, states, " I am feeling much better.". 16:30 Reassessment: Patient appears in no apparent distress at this time. Patient and/or ph family updated on plan of care and expected duration. Pain level reassessed. Patient is alert, oriented x 3, equal unlabored respirations, skin warm/dry/pink. 18:24 Reassessment: Patient appears in no apparent distress at this time. Patient and/or ph family updated on plan of care and expected duration. Pain level reassessed. Patient is alert, oriented x 3, equal unlabored respirations, skin warm/dry/pink. Pt sitting up in bed eating dinner, tolerating well. 18:45 Reassessment: Pt pressed call light, entered room to find pt leaning over to the L w/ ph head resting on bed rail, food noted around mouth, brother at bedside states, " She's having another episode." Asked pt if she had choked, pt mumbled, " No it's still in my mouth." Prompted pt to spit food into emesis bag, pt states, " No, I don't want to spit it out. I'm going to try to chew it." Asked pt to spit food out again and she again refused. VSS noted to have remained normal throughout event, Spo2 99% RA, normal respirations, HR, and BP. [place] placed under pt's head, will continue to monitor. 19:30 Reassessment: Patient appears in no apparent distress at this time. Patient and/or hb family updated on plan of care and expected duration. Pain level reassessed. Patient is alert, oriented x 3, equal unlabored respirations, skin warm/dry/pink. 20:30 Reassessment: Patient appears in no apparent distress at this time. Patient and/or hb family updated on plan of care and expected duration. Pain level reassessed. Patient is alert, oriented x 3, equal unlabored respirations, skin warm/dry/pink. 21:25 Reassessment: Patient appears in no apparent distress at this time. Patient and/or hb family updated on plan of care and expected duration. Pain level reassessed. Patient is alert, oriented x 3, equal unlabored respirations, skin warm/dry/pink. 21:42 Reassessment: Attempted to call report to floor, receiving nurse unavailable, will call hb back. Vital Signs: 14:05 Pulse 104; Resp 18; Pulse Ox 99% on R/A; ss 14:14 BP 195 / 113; Pulse 99; Resp 16; Temp 98.2; Pulse Ox 98% on R/A; ph 15:00 BP 182 / 76; Pulse 89; Resp 16; Pulse Ox 99% on R/A; ph 16:01 BP 160 / 75; Pulse 89; Resp 18; Pulse Ox 98% on R/A; ph 17:00 BP 156 / 85; Pulse 89; Resp 18; Pulse Ox 100% on R/A; ph 18:00 BP 156 / 77; Pulse 94; Resp 18; Pulse Ox 98% on R/A; ph 19:01 BP 157 / 80; Pulse 91; Resp 18; Pulse Ox 100% on R/A; ph 20:30 BP 128 / 84; Pulse 58; Resp 21; Pulse Ox 97% on R/A; hb 21:30 BP 126 / 79; Pulse 89; Resp 23; Pulse Ox 100% on R/A; hb NIH Stroke Scale Scores: 14:48 NIHSS Score: 2 production intern Course: 14:05 Patient arrived in ED. eb 14:05 Alistair Sagastume MD is Attending Physician. eb 14:08 Triage completed. ss 14:14 Arm band placed on Patient placed in an exam room, on a stretcher, on horticultural nursery assistant, ph on pulse oximetry. 14:15 Patient has correct armband on for positive identification. Bed in low position. Call ph light in reach. Side rails up X 1. Client placed on continuous cardiac and pulse oximetry monitoring. NIBP monitoring applied. Door closed. Noise minimized. Warm blanket given. 14:17 CT Stroke Brain w/o Contrast In Process Unspecified. EDMS 15:01 Estela Ramos, RN is Primary Nurse. ph 15:08 Stroke CXR 1 View In Process Unspecified. EDMS 16:33 Godwin Orona MD is Hospitalizing Provider. rn 19:00 No provider procedures requiring assistance completed. Maintain EMS IV. Dressing ph intact. Good blood return noted. Site clean \\T\\ dry. Gauge \\T\\ site: 20 RAC. Patient admitted, IV remains in place. Administered Medications: 06:40 Drug: Insulin Regular Human 10 units {Co-Signature: [email or web address] (Lisa Echevarria RN).} Route: ph Sub-Q; Site: right upper arm; 18:54 Follow up: Response: No adverse reaction ph 14:37 Drug: Benadryl (diphenhydrAMINE) 50 mg Route: IVP; Site: right antecubital; ph 18:54 Follow up: Response: No adverse reaction ph 14:37 Drug: SOLU-Medrol (methylPrednisoLONE) 125 mg Route: IVP; Site: right antecubital; ph 18:54 Follow up: Response: No adverse reaction ph Medication: 14:18 VIS not applicable for this client. ph Outcome: 16:34 Decision to Hospitalize by Provider. rn 22:29 Patient left the ED. bb NIH Stroke Scale - NIH Stroke Score Date: 12/31/2021 Time: 14:48 Total Score = 2 1a. Level of Consciousness (LOC) - 0(Alert) 1b. Level of Consciousness (LOC) (Month \\T\\ Age) - 0(Both) 1c. LOC Commands (Open \\T\\ Closes Eyes/Bicycle Messenger) - 0(Both) 2. Best Gaze (Lateral Gaze Paresis) - 0(Normal) 3. Visual Field Loss - 0(No visual loss) 4. Facial Palsy - 1(Minor Paralysis) 5a. Left Arm: Motor (10-second hold) - 0(No drift) 5b. Right Arm: Motor (10-second hold) - 0(No drift) 6a. Left Leg: Motor (5-second hold - always test supine) - 0(No drift) 6b. Right Leg: Motor (5-second hold - always test supine) - 0(No drift) 7. Limb Ataxia (finger/nose \\T\\ heel/ryan - test with eyes open) - 0(Absent) 8. Sensory Loss (pinprick arms/legs/face) - 0(Normal) 9. Best Language: Aphasia (description/naming/reading) - 0(No aphasia) 10. Dysarthria (speech clarity - read or repeat words) - 1(Mild to Moderate) 11. Extinction and Inattention (visual/tactile/auditory/spatial/personal) - 0(No abnormality) Initials: rn Signatures: Dispatcher [employer] EDHeide Sheehan RN RN bb Nieto, Roman, MD MD rn Smirch, Shelby, RN RN ss Hall, Patricia, RN RN Olvie Truong RN RN Winnie Buchanan RN [email or web address] Corrections: (The following items were deleted from the chart) 18:23 14:10 General: ph ph
--- NOTE | 2021-12-31 16:34 | EDPHYS ---
Physician Documentation [facility] Name: Zohreh Lee Age: 66 yrs Sex: Female : 1955 Arrival Date: 12/31/2021 Time: 14:05 Bed 7 Private MD: ED Physician Alistair Sagastume HPI: 12/31 14:30 This 66 yrs old Female presents to ER via EMS with complaints of S/S of Possible Stroke.rn 14:31 The patient presents with weakness all over, trouble with speech, slow to respond. rn Onset: The symptoms/episode began/occurred 1 hour(s) ago. Possible causes: mastocytosis. Associated signs and symptoms: Pertinent positives: dizziness, lightheadedness, weakness. Current symptoms: In the emergency department the patient's symptoms are unchanged from the initial presentation. The patient has experienced similar episodes in the past, multiple times, today's symptoms are similar, and the symptoms today are exactly the same. The patient has been recently seen by a physician:. Pt and report hx of mastocytosis, and gets "these attacks often". Patient states this has happened 742 times since 2014, improves with benadryl or hydroxyzine, states symptoms of generalized weakness, confusion, speech problem, and "face pulling" happen and improve with meds. States has never been diagnosed with stroke before. states this happens frequently and improves with meds. States this is 3rd time this has happened in last week, taken to [place] last and got better with medication. No recent trauma.. Historical: - Allergies: 14:05 Albuterol; ss 14:05 steroids; ss - PMHx: 14:05 Mastocytosis; ss - Immunization history:: Adult Immunizations unknown. - Social history:: Smoking status: unknown. - Family history:: not pertinent. - Hospitalizations: : No recent hospitalization is reported. ROS: 14:31 Constitutional: Negative for fever, chills, and weight loss, Eyes: Negative for injury, rn pain, redness, and discharge, Neck: Negative for injury, pain, and swelling, Cardiovascular: Negative for chest pain, and edema, Respiratory: Negative for shortness of breath, cough, wheezing, and pleuritic chest pain, Abdomen/GI: Negative for abdominal pain, nausea, vomiting, diarrhea, and constipation, Back: Negative for injury and pain, MS/Extremity: Negative for injury and deformity, Skin: Negative for injury, rash, and discoloration, Neuro: Negative for seizure Exam: 14:31 Constitutional: This is a well developed, well nourished patient who is awake, alert, rn and in no acute distress. Head/Face: Normocephalic, atraumatic. Eyes: Pupils equal round and reactive to light, extra-ocular motions intact. Cardiovascular: Regular rate and rhythm. No pulse deficits. Respiratory: No increased work of breathing, no retractions or nasal flaring. Abdomen/GI: Soft, non-tender Skin: Warm, dry MS/ Extremity: Pulses equal, no cyanosis Neuro: Awake and alert, GCS 15, + equally weak in all extremities, + occasional jerking noted entire body and maintains consciousness. + right upper and lower facial droop with slurred speech. Sensation intact. 15:06 ECG was reviewed by the Attending Physician. rn Vital Signs: 14:05 Pulse 104; Resp 18; Pulse Ox 99% on R/A; ss 14:14 BP 195 / 113; Pulse 99; Resp 16; Temp 98.2; Pulse Ox 98% on R/A; ph 15:00 BP 182 / 76; Pulse 89; Resp 16; Pulse Ox 99% on R/A; ph 16:01 BP 160 / 75; Pulse 89; Resp 18; Pulse Ox 98% on R/A; ph 17:00 BP 156 / 85; Pulse 89; Resp 18; Pulse Ox 100% on R/A; ph 18:00 BP 156 / 77; Pulse 94; Resp 18; Pulse Ox 98% on R/A; ph 19:01 BP 157 / 80; Pulse 91; Resp 18; Pulse Ox 100% on R/A; ph 20:30 BP 128 / 84; Pulse 58; Resp 21; Pulse Ox 97% on R/A; hb 21:30 BP 126 / 79; Pulse 89; Resp 23; Pulse Ox 100% on R/A; hb NIH Stroke Scale Scores: 14:48 NIHSS Score: 2 rn MDM: 14:08 Patient medically screened. rn 14:51 ED course: Spoke at length with patient and family member in room about previous rn "episodes" and us trying to rule out stroke. Family and patient report that is happens frequently and they do not believe this is a stroke and confident that symptoms will improve with medication as they usually do.. 15:03 ED course: Pt with significant improvement, able to sit up, speech clearer, able to rn fully move right side of face, still twitching, but seems overall better. Went to speak with patient and brother once again and insists that this is not a stroke and is following common pattern as before. . 16:30 Differential Diagnosis: CVA, electrolyte abnormality, TIA, volume depletion, stress rn reaction, acute kidney failure. Data reviewed: vital signs, nurses notes, lab test result(s), radiologic studies, CT scan, plain films, and as a result, I will admit patient. Counseling: I had a detailed discussion with the patient and/or guardian regarding: the historical points, exam findings, and any diagnostic results supporting the discharge/admit diagnosis, lab results, radiology results, the need for further work-up and treatment in the hospital. Response to treatment: the patient's symptoms have markedly improved after treatment, the patient's condition has returned to base line, and as a result, I will admit patient. Admission orders: after a detailed discussion of the patient's condition and case, the admit orders are written by me. ED course: Pt back to baseline neurologically, new kidney failure, will admit to Dr. Orona.. 12/31 14:10 Order name: Basic Metabolic Panel; Complete Time: 14:47 12/31 14:10 Order name: CBC with Diff; Complete Time: 14:23 12/31 14:10 Order name: Protime (+inr); Complete Time: 14:41 12/31 14:10 Order name: Ptt, Activated; Complete Time: 14:41 12/31 14:11 Order name: Urine Microscopic Only; Complete Time: 16:12 12/31 15:38 Order name: Urine Dipstick-Ancillary; Complete Time: 16:12 [facility] 12/31 14:10 Order name: CT Stroke Brain w/o Contrast; Complete Time: 14:23 12/31 14:10 Order name: Stroke CXR 1 View; Complete Time: 15:31 12/31 17:09 Order name: CBC with Automated Diff EDPR 12/31 17:09 Order name: CBC with Automated Diff EDPR 12/31 17:09 Order name: Comprehensive Metabolic Panel EDPR 12/31 17:09 Order name: Comprehensive Metabolic Panel EDPR 12/31 17:39 Order name: SARS RAPID eb 12/31 19:04 Order name: SARS-COV-2 Antigen Rapid EDPR 12/31 14:10 Order name: IV Start; Complete Time: 14:18 rn 12/31 14:10 Order name: Cardiac monitoring; Complete Time: 14:18 rn 12/31 14:10 Order name: O2 Sat Monitoring; Complete Time: 14:19 rn 12/31 14:10 Order name: EKG; Complete Time: 14:11 rn 12/31 14:10 Order name: Accucheck; Complete Time: 14:18 rn 12/31 14:10 Order name: EKG - Nurse/Tech; Complete Time: 14:18 rn 12/31 14:10 Order name: Labs collected and sent; Complete Time: 14:18 rn 12/31 14:10 Order name: NPO; Complete Time: 14:18 rn 12/31 14:10 Order name: O2 Per Protocol; Complete Time: 14:18 rn 12/31 14:11 Order name: Urine Dipstick-Ancillary (obtain specimen); Complete Time: 15:22 rn 12/31 17:09 Order name: Renal EDPR 12/31 18:26 Order name: US EDMS EC:06 Rate is 100 beats/min. Rhythm is regular. QRS [place] is Normal. IA interval is normal. rn QRS interval is normal. QT interval is normal. No Q waves. T waves are Inverted in lead aVL. No ST changes noted. Clinical impression: NSR w/ Non-specific ST/T Changes. Interpreted by me. Reviewed by me. Administered Medications: 06:40 Drug: Insulin Regular Human 10 units {Co-Signature: [email or web address] (Lisa Echevarria RN).} Route: ph Sub-Q; Site: right upper arm; 18:54 Follow up: Response: No adverse reaction ph 14:37 Drug: Benadryl (diphenhydrAMINE) 50 mg Route: IVP; Site: right antecubital; ph 18:54 Follow up: Response: No adverse reaction ph 14:37 Drug: SOLU-Medrol (methylPrednisoLONE) 125 mg Route: IVP; Site: right antecubital; ph 18:54 Follow up: Response: No adverse reaction ph Disposition Summary: 12/31/21 16:34 Hospitalization Ordered Hospitalization Status: Inpatient Admission rn Provider: Godwin Orona rn Location: Telemetry/MedSurg (Inpatient) rn Condition: Stable rn Problem: new rn Symptoms: have improved rn Bed/Room Type: Standard rn Room Assignment: 415(12/31/21 21:04) wm Diagnosis - Acute kidney failure, unspecified rn - Altered mental status, unspecified rn Forms: - Medication Reconciliation Form rn - SBAR form rn NIH Stroke Scale - NIH Stroke Score Date: 12/31/2021 Time: 14:48 Total Score = 2 1a. Level of Consciousness (LOC) - 0(Alert) 1b. Level of Consciousness (LOC) (Month \\T\\ Age) - 0(Both) 1c. LOC Commands (Open \\T\\ Closes Eyes/Thread Twister) - 0(Both) 2. Best Gaze (Lateral Gaze Paresis) - 0(Normal) 3. Visual Field Loss - 0(No visual loss) 4. Facial Palsy - 1(Minor Paralysis) 5a. Left Arm: Motor (10-second hold) - 0(No drift) 5b. Right Arm: Motor (10-second hold) - 0(No drift) 6a. Left Leg: Motor (5-second hold - always test supine) - 0(No drift) 6b. Right Leg: Motor (5-second hold - always test supine) - 0(No drift) 7. Limb Ataxia (finger/nose \\T\\ heel/ryan - test with eyes open) - 0(Absent) 8. Sensory Loss (pinprick arms/legs/face) - 0(Normal) 9. Best Language: Aphasia (description/naming/reading) - 0(No aphasia) 10. Dysarthria (speech clarity - read or repeat words) - 1(Mild to Moderate) 11. Extinction and Inattention (visual/tactile/auditory/spatial/personal) - 0(No abnormality) Initials: rn Signatures: Dispatcher [employer] EDAlistair Yadav MD MD rn Smirch, Shelby, RN RN ss Hall, Patricia, RN RN ph Marsh, Wendy wm Jennifer Hastedt RN 6 Corrections: (The following items were deleted from the chart) 14:50 14:31 Constitutional: This is a well developed, well nourished patient who is rn awake, alert, and in no acute distress. Head/Face: Normocephalic, atraumatic. Eyes: Pupils equal round and reactive to light, extra-ocular motions intact. Cardiovascular: Regular rate and rhythm. No pulse deficits. Respiratory: No increased work of breathing, no retractions or nasal flaring. Abdomen/GI: Soft, non-tender Skin: Warm, dry MS/ Extremity: Pulses equal, no cyanosis Neuro: Awake and alert, GCS 15 rn 21:04 16:34 rn wm
--- NOTE | 2021-12-31 17:41 | P.HP ---
Certification for Inpatient With expected LOS: >2 Midnights Practitioner: I am a practitioner with admitting privileges, knowledge of patient current condition, hospital course, and medical plan of care. Services: Services provided to patient in accordance with Admission requirements found in Title 42 Section 412.3 of the Code of Federal Regulations Patient History Date of Service: 12/31/21 Reason for admission: Acute renal failure transient black History of Present Illness: Patient is 66 years of age blacked out been under a lot of stress recently house is about to be demolished by the city is a history of mastocytosis he has had about 745 episodes of blackout in addition to chronic nonhealing superficial ulcers of both feet is at her baseline except this time she was found to have an elevated creatinine denies any fever or chills very unkempt Allergies acetaminophen [From Tylenol] Allergy (Severe, Verified 05/14/12 21:09) Anaphylaxis ibuprofen lysine [From NeoProfen (ibuprofen lysn)(PF)] Allergy (Severe, Verified 01/08/13 04:24) Anaphylaxis methylprednisolone sod succ [From Solu-Medrol] Allergy (Severe, Verified 01/08/13 11:15) Anaphylaxis albuterol Adverse Reaction (Severe, Verified 05/14/12 21:09) Anaphylaxis steroids Allergy (Uncoded 06/24/15 15:52) Unknown Home Medications: Aspirin 650 mg PO Q6HP PRN 01/08/13 Cimetidine [Tagamet Hb] 200 mg PO DAILY 01/08/13 Diphenhydramine [Benadryl*] 25 mg PO Q6HP PRN 01/08/13 Hydroxyzine HCl [Atarax] 40 mg PO PRN PRN 01/08/13 predniSONE [Prednisone*] 5 mg PO DAILYPRN PRN 01/08/13 - Past Medical/Surgical History Diabetic: No -: mastocytosis -: bronchitis -: food posioning -: Blind -: tosilectomy -: explorotory lap - Social History Alcohol use: No CD- Drugs: No Caffeine use: Yes Review of Systems General: Weakness Integumentary: Other (Superficial ulcers of the feet) Physical Examination - Vital Signs Temperature: 98 F Blood Pressure: 160/75 Pulse: 89 Respirations: 18 Pulse Ox (%): 98 - Physical Exam General: Alert, In no apparent distress, Oriented x3 HEENT: Atraumatic, Normocephalic Neck: Supple Respiratory: Clear to auscultation bilaterally, Normal air movement Cardiovascular: No edema, Normal pulses, Regular rate/rhythm, Normal S1 S2 Gastrointestinal: Normal bowel sounds, Soft and benign Integumentary: Skin breakdown (Patient has superficial ulcers on both her feet which are chronic) - Studies Laboratory Data (last 24 hrs) 12/31/21 14:05: PT 10.8, INR 0.98, APTT 29.5 12/31/21 14:05: WBC 7.50, Hgb 8.6 L, Hct 25.9 L, Plt Count 298 12/31/21 14:05: Sodium 128 L, Potassium 4.3, BUN 26 H, Creatinine 3.11 H, Glucose 546 H* Assessment and Plan - Problems (Diagnosis) (1) Acute renal failure Current Visit: Yes Status: Acute Plan: Patient is 66 years of age. 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
--- NOTE | 2021-12-31 18:26 | RAD REPORT ---
EXAM DESCRIPTION: US - Renal Ultrasound-Complete - 12/31/2021 6:07 pm CLINICAL HISTORY: renal failure COMPARISON: No comparisons FINDINGS: Both kidneys are normal in size, shape and echotexture. The right kidney measures 8.5 cm. No hydronephrosis, focal mass or perinephric fluid. The left kidney measures 8.4 cm. No hydronephrosis, focal mass or perinephric fluid. The urinary bladder is without gross abnormality seen. IMPRESSION: Unremarkable renal sonogram. No evidence hydronephrosis.
[2021-12-31 19:04] LABS: SARS-CoV-2 Antigen Rapid Res Negative (Negative)
[2021-12-31] MEDS ORDERED: MORPHINE 4 MG/ML SYR IV PRN (22:14)
[2021-12-31] MEDS ORDERED: ONDANSETRON 4 MG/2 ML VIAL IV PRN (22:15)
[2021-12-31] MEDS: NA CHLORIDE 0.9% 1,000 ML IV SCH (23:25)
[2021-12-31] MEDS: hydrOXYzine HCL 25 MG TAB PO PRN (23:26)
[2022-01-01] MEDS ORDERED: GLUCAGON 1 MG/VIAL IM PRN (00:22)
[2022-01-01] MEDS ORDERED: D50W 25 GM/50 ML SYRINGE IV PRN (00:22)
[2022-01-01] MEDS ORDERED: INSULIN -REGULAR HUMAN 50 UNIT/0.5 ML ML IV ONE ×2 (00:22→02:36)
[2022-01-01] MEDS ORDERED: D10W 125 ML IV PRN (00:31)
[2022-01-01] MEDS: INSULIN -REGULAR HUMAN 50 UNIT/0.5 ML ML SQ SCH ×5 (00:39→20:26)
[2022-01-01 01:09] VITALS: BMI 32.5
[2022-01-01] MEDS: NA CHLORIDE 0.9% 1,000 ML IV SCH ×3 (04:00→20:26)
[2022-01-01 05:45] LABS: Absolute Lymphocytes (CBC) 0.9 K/uL (0.7-4.9); Lymphocytes % 7.8 % (15.3-44.8); MCV 83.2 fL (80-100); MPV 8.8 fL (7.6-11.3); RBC Red Blood Cell Count 3.12 M/uL (3.86-4.86)
[2022-01-01 06:03] LABS: Bilirubin Total 0.2 mg/dL (0.2-1.0); Magnesium 2.3 mg/dL (1.8-2.4); Phosphorus 2.6 mg/dL (2.5-4.9); Potassium 4.2 mmol/L (3.5-5.1); Protein, Total 7.6 g/dL (6.4-8.2)
[2022-01-01] MEDS ORDERED: PNEUMOCOCCAL VACCINE 0.5 ML IMVAC ONE (08:00)
--- NOTE | 2022-01-01 10:22 | EKG ---
Test Date: 2021-12-31 Test Time: 14:11:12 Manager Product Marketing: PASTOR MEASUREMENT RESULTS: Intervals: Rate: 100 SC: 180 QRSD: 98 QT: 358 QTc: 461 [place]: P: 61 SC: 180 QRS: -12 T: 102 INTERPRETIVE STATEMENTS: Normal sinus rhythm ST & T wave abnormality, consider lateral ischemia Prolonged QT Abnormal ECG Compared to ECG 10/21/2010 12:52:01 ST (T wave) deviation now present Possible ischemia now present Prolonged QT interval now present Sinus tachycardia no longer present Electronically Signed On 01-01-22 10:20:05 CDT by Addison Leiva
[2022-01-01] MEDS: carvediloL 12.5 MG TAB PO SCH (17:25)
--- NOTE | 2022-01-01 17:43 | P.PN ---
Subjective Date of Service: 01/01/22 Chief Complaint: Acute renal failure transient black Subjective: No new changes No acute events overnight. She has not had any recurrent episodes of syncope. She states that she has now had 756 episodes of syncope secondary to systemic mastocytosis over the last 7 years. She endorses significant concern with the ability to afford her medications. Review of Systems 10-point ROS is otherwise unremarkable Integumentary: Rash (bilateral feet) Physical Examination - Vital Signs Temperature: 98.2 F Blood Pressure: 171/84 Pulse: 85 Respirations: 16 Pulse Ox (%): 97 - Physical Exam General: Alert, In no apparent distress, Oriented x3 HEENT: Atraumatic, PERRLA, Mucous membr. moist/pink, EOMI, Sclerae nonicteric Neck: Supple, JVD not distended Respiratory: Clear to auscultation bilaterally, Normal air movement Cardiovascular: No edema, Regular rate/rhythm, Normal S1 S2, No gallops, No rubs, No murmurs Gastrointestinal: Normal bowel sounds, Soft and benign, Non-distended, No tenderness, No rebound, No guarding Musculoskeletal: No clubbing Integumentary: No rashes, Skin lesion (bilateral feet - sees a nurse charge rn (states that these are mastocytosis-related lesions)) Assessment And Plan - Plan # Recurrent Syncope # Reported Chronic Congestive Heart Failure # Hypertension Differential diagnoses include, but are not limited to, vasovagal syncope, orthostatic hypotension, cardiac etiology (i.e. arrhythmia, valvulopathy), and neurogenic etiologies (i.e. cerebrovascular accident, seizure). She states that she believes these episodes occur with significant mastocytosis flare-ups. Will initiate further evaluation as outlined below: - Orthostatic vital signs Telemetry - Transthoracic echocardiogram - Resume home carvedilol if vital signs are negative - Noncontrast CT head = "no acute intracranial abnormality." # Elevated Creatinine - Acute Kidney Injury vs Chronic Kidney Disease Stage IV - Nephrology consulted - recommendatinos appreciated - Creatinine = 3.08 (baseline creatinine unknown) - Reports have a known kidney function of "3%" - Renal ultrasound = "Unremarkable renal sonogram. No evidence hydronephrosis." - Urinalysis = 2+ glucose, trace blood, 1+ protein - Monitor creatinine and urine output - Renally dose medications # Hyperglycemia - suspect Type II Diabetes Mellitus - Denies history of diabetes mellitus, but reports taking metformin and Tradjenta at home - Ordered Hgb A1c - Correction scale insulin ordered # Reported Systemic and Cuteaneous Mastocytosis - Continue home medications - Wound care consulted Juan M Ortiz M.D.
--- NOTE | 2022-01-01 22:14 | CON ---
Date of Consultation: 01/01/2022 Chief Complaint: Acute kidney injury. History Of Present Illness: Patient was admitted to the hospital on December 31, 2021. She was found to have elevated BUN and creatinine and severe hyperglycemia. Patient is a 66-year-old woman with hi story of mastocytosis. She has history of chronic nonhealing superficial ulcers of both feet and she has anxiety disorder. Recently, she had stressful family situation. She was previously treated for bronchitis, food poisoning. She denies history of diabetes mellitus, although she was taking predni sone and hydroxyzine, famotidine, aspirin and Benadryl. She has significant allergy to ibuprofen and methylprednisolone. She cannot take Solu-Medrol because of anaphylaxis. She cannot take albuterol because of anaphylaxis and she has allergy to steroids. As well, she cannot take Tylenol because of severe anaphylaxis. Review of Systems: General: Patient denies fevers, chills. Eyes: Denies vision changes. Ears, Nose, Mouth, and Throat: Denies sore throat or earache. Respiratory: Denies hemoptysis. GI: Denies melena or hematemesis. : Denies dysuria, hematuria. Musculoskeletal: She has superficial ulcers as stated above. Past Medical History: Mastocytosis, bronchitis, food poisoning, retinopathy, patient is legally blin d, tonsillectomy. Social History: Denies tobacco, alcohol, or illicit drugs. Physical Examination: General: Patient is awake, alert, follows commands. Eyes: Patient has history of vision impairment. Neck: Supple. Respiratory: Clear to auscultation bilaterally. Heart: S1, S2. Abdomen: Soft, benign. Extremities: Superficial ulcer in both feet which appeared to be chronic. Laboratory Data: Sodium 128, potassium 4.3, BUN 26, creatinine 3.11, glucose 546. INR 0.98, PTT 29. 5, PT 10.8. Renal ultrasound showed both kidneys are normal in size, shape and echotexture. Right yancy celis measures 8.5 cm in length. No hydronephrosis. No focal mass. No perinephric fluid. Left nate rosario measures 8.4 cm in length. No hydronephrosis. No focal mass. No perinephric fluid. Bladder is without gross abnormality as seen on ultrasound. Lab work today, blood work showed sodium 130, potassium 4.2, chloride 101, CO2 total 19, BUN 29, crea tinine 3.08. Hemoglobin A1c is ordered and is 10.6, AST 9, ALT 11, total bilirubin is 0.9, phosphoru s 2.6, magnesium 2.3, albumin 3.0, of 0.7, total protein 7.6. Urinalysis showed specific gravity 1.010, pH 5.5, blood trace, glucose 2+, ketones negative, nitrites negative, leukocyte estera se negative, wbc less than 5 and rbc less than 5, protein urine 1+ to 2+. Impression And Plan: 1.Acute kidney injury and likely there is underlying chronic kidney disease. Patient has severe hyp erazotemia. Plan is to check CK level to rule out rhabdomyolysis. Urinalysis did not show active ur inary sediment, likely patient has acute tubular necrosis on advanced chronic kidney disease. Stephon connolly has diabetes mellitus. She will continue insulin. Patient has proteinuria. Plan is to check for any evidence of protein abnormalities including monoclonal gammopathy of unknown significance. 2.Hypertension. Monitor blood pressure. Avoid nephrotoxic medication and continue blood pressure m edication. Currently, blood pressure is uncontrolled. Plan is to check renal artery Doppler for temitope ovascular hypertension workup. EB/MODL Voice ID: [id number] Report ID: [id number]
[2022-01-02 06:06] LABS: Absolute Lymphocytes (CBC) 3.3 K/uL (0.7-4.9); Hematocrit 21.7 % (36.0-45.0); Lymphocytes % 33.6 % (15.3-44.8); MCV 83.2 fL (80-100); MPV 8.7 fL (7.6-11.3)
[2022-01-02 06:20] LABS: Potassium 4.1 mmol/L (3.5-5.1)
[2022-01-02] MEDS: carvediloL 12.5 MG TAB PO SCH ×2 (06:57→17:54)
[2022-01-02] MEDS: NA CHLORIDE 0.9% 1,000 ML IV SCH ×2 (06:57→17:23)
[2022-01-02] MEDS: INSULIN GLARGINE 100 UNIT/ML SQ SCH (10:08)
[2022-01-02] MEDS: INSULIN -REGULAR HUMAN 50 UNIT/0.5 ML ML SQ SCH ×4 (10:08→21:00)
--- NOTE | 2022-01-02 12:23 | PN ---
Date of Progress Note: 01/02/2022 Subjective: This is a 66-year-old female. The patient was admitted to the hospital with acute kidney injury apparently on chronic kidney disease. The patient has diabetes with neuropathy and retinopathy, legally blind. The patient apparently admitted to the hospital with acute kidney injury on advanced chronic kidney disease. The patient was admitted 2 years back to [facility] with congestive heart failure and acute kidney injury. According to her, her ejection fraction was on the 20 and kidney function around the 3rd according to the patient. Physical Examination: Vital Signs: When I saw the patient; blood pressure 184/88, pulse of 72, afebrile. Chest: Faint rales on the base. Heart: S1, S2. Regular. Systolic murmur. Abdomen: Soft, nontender. Extremity: Trace edema. Neurological: Alert. Legally blind. No focality. Laboratory Data: WBC 9.9, H and H 7.1/21.7, platelets 241. Sodium 136, potassium 4.1, bicarb 22, BUN 35, creatinine 2.8, GFR 17, calcium of 8. Serum protein electrophoresis is still pending. PC ratio not done. Serology is still pending. Renal ultrasound showing small sized kidney 8.5 x 8.4. Echocardiogram was not done. Chest x-ray; no cardiomegaly, no congestion. Current Medications: The patient on include hydroxyzine, carvedilol, insulin, normal saline at 100 per hour. Assessment And Plan: 1. Acute kidney injury, almost on advanced chronic kidney disease, small size kidney, secondary to diabetes nephropathy, poor compliance/cardiorenal, looked to me still on the dry side. I am going to go ahead and continue IV fluid. We will send for workup with the presence of anemia. Waiting for serum protein electrophoresis to rule out light chain disease and we will follow up. Keep avoiding any SEVERO inhibitor or ARB for the time being. We will follow up with Cardiology. 2. Hypertension, currently controlled. Blood pressure systolic 136 earlier. We will follow up. Keep avoiding SEVERO inhibitor and ARB. 3. Anemia with the presence of acute kidney injury, mostly secondary to chronic kidney disease. To rule out any light chain disease, we will send for serum protein electrophoresis. We will send for anemia workup. 4. Hyponatremia dilutional/depletional. Continue IV fluid. 5. Diabetes as by primary. Time spent examining the patient [id number], reviewing the data lab and radiology, placing orders, discussing with the patient, explaining risks, benefits, alternatives, discussing with the staff member including nursing discussing with the hospitalist more than 35 minutes. FLORIDALMA Voice ID: [id number] Report ID: [id number] CLAUDIA
--- NOTE | 2022-01-02 23:24 | P.PN ---
Subjective Date of Service: 01/02/22 Chief Complaint: Acute renal failure transient black No acute events overnight. She has not had any recurrent episodes of syncope. She denies any dysuria, hematuria, urinary frequency, or pyuria. Review of Systems 10-point ROS is otherwise unremarkable General: Weakness Physical Examination - Vital Signs Temperature: 98.9 F Blood Pressure: 171/78 Pulse: 76 Respirations: 19 Pulse Ox (%): 98 Assessment And Plan - Plan - Physical Exam General: Alert, In no apparent distress, Oriented x3 HEENT: Atraumatic, PERRLA, Mucous membr. moist/pink, EOMI, Sclerae nonicteric Neck: Supple, JVD not distended Respiratory: Clear to auscultation bilaterally, Normal air movement Cardiovascular: No edema, Regular rate/rhythm, Normal S1 S2, No gallops, No rubs, No murmurs Gastrointestinal: Normal bowel sounds, Soft and benign, Non-distended, No tenderness, No rebound, No guarding Musculoskeletal: No clubbing Integumentary: No rashes, Skin lesion (bilateral feet - sees a director learning (states that these are mastocytosis-related lesions)) # Recurrent Syncope # Reported Chronic Congestive Heart Failure # Hypertension Differential diagnoses include, but are not limited to, vasovagal syncope, orthostatic hypotension, cardiac etiology (i.e. arrhythmia, valvulopathy), and neurogenic etiologies (i.e. cerebrovascular accident, seizure). She states that she believes these episodes occur with significant mastocytosis flare-ups. Will initiate further evaluation as outlined below: - Orthostatic vital signs Telemetry - Transthoracic echocardiogram - Resume home carvedilol if orthostatic vital signs are negative - Noncontrast CT head = "no acute intracranial abnormality." # Elevated Creatinine - Acute Kidney Injury vs Chronic Kidney Disease Stage IV - Nephrology consulted - recommendatinos appreciated - Creatinine = 3.08 -> 2.89 (baseline creatinine unknown) - Reports have a known kidney function of "3%" - Renal ultrasound = "Unremarkable renal sonogram. No evidence hydronephrosis." - Urinalysis = 2+ glucose, trace blood, 1+ protein - Monitor creatinine and urine output - Renally dose medications # Hyperglycemia - suspect Type II Diabetes Mellitus - Denies history of diabetes mellitus, but reports taking metformin and Tradjenta at home - Hgb A1c = >14.0 - Started basal insulin with insulin glargine at 15 units daily - Correction scale insulin ordered # Reported Systemic and Cuteaneous Mastocytosis - Continue home medications - Wound care consulted Juan M Ortiz M.D.
[2022-01-03 06:28] LABS: Absolute Lymphocytes (CBC) 2.6 K/uL (0.7-4.9); Hematocrit 22.9 % (36.0-45.0); Lymphocytes % 33.8 % (15.3-44.8); MCV 83.6 fL (80-100); MPV 8.4 fL (7.6-11.3); RBC Red Blood Cell Count 2.74 M/uL (3.86-4.86)
[2022-01-03 06:47] LABS: Albumin 2.6 g/dL (3.4-5.0); Ferritin 10.1 ng/mL (8-388); Folic Acid, (Folate) 4.2 ng/mL (3.1-17.5); Phosphorus 3.1 mg/dL (2.5-4.9); Potassium 4.2 mmol/L (3.5-5.1); Uric Acid 5.7 mg/dL (2.6-6.0)
[2022-01-03 06:48] LABS: Thyroid Stimulating Hormone 4.51 uIU/mL (0.360-3.740)
[2022-01-03] MEDS: carvediloL 12.5 MG TAB PO SCH (09:27)
[2022-01-03] MEDS: NA CHLORIDE 0.9% 1,000 ML IV SCH (09:28)
[2022-01-03] MEDS: INSULIN GLARGINE 100 UNIT/ML SQ SCH (09:37)
[2022-01-03] MEDS: INSULIN -REGULAR HUMAN 50 UNIT/0.5 ML ML SQ SCH ×4 (09:38→21:19)
[2022-01-03] MEDS ORDERED: METHYLPREDNISOLONE 125 MG INJ ONE (09:58)
[2022-01-03] MEDS ORDERED: DIPHENHYDRAMINE 25 MG TAB/CAP ONE (09:58)
[2022-01-03] MEDS ORDERED: DIPHENHYDRAMINE 12.5MG/5ML LIQ ONE (09:58)
[2022-01-03] MEDS ORDERED: LORazepam 2 MG/ML VIAL ONE (10:00)
[2022-01-03] MEDS ORDERED: DIPHENHYDRAMINE 50 MG/ML VIAL ONE (10:01)
[2022-01-03] MEDS ORDERED: FAMOTIDINE 20 MG/2 ML VIAL IV ONE (10:03)
--- NOTE | 2022-01-03 12:36 | PN ---
Date of Progress Note: 01/03/2022 Subjective: The patient was admitted with acute kidney injury on chronic kidney disease secondary to prerenal. Physical Examination: Vital Signs: Blood pressure 195/92, pulse of 75, afebrile. Chest: Clear to auscultation. Heart: S1, S2. Regular. Abdomen: Soft, nontender. Extremity: Trace edema. Neuro: Alert. No focality. The patient has episode of questionable tactile movement. Laboratory Data: WBC 7.8, H and H 7.5/22.9. Sodium 136, potassium 4.2, bicarb 20, BUN 30, creatinine 2.4, continued to trend down, GFR of 21, calcium 7.6, phosphorus 3.1. Iron saturation of 5. Vitamin D still pending. TSH 4.5, PTH 159, +1 protein. Serum protein electrophoresis is still pending. Current Medications: The patient on include hydroxyzine, carvedilol 12.5, Zofran, insulin. Assessment And Plan: 1. Acute kidney injury secondary to prerenal, small size kidney bilateral on chronic kidney disease. On the recovery phase, looked to me normal volume. I am going to discontinue IV fluid. 2. Hypertension, not controlled. We will start the patient on amlodipine 10 mg daily. I am going to add hydralazine 25 mg and we will increase her carvedilol to 25 mg. We will follow up response. Keep avoiding SEVERO inhibitor or ARB for the time being given the acute kidney injury. 3. Altered mental status as by primary. 4. Diabetes as by primary. 5. Hyponatremia secondary to dehydration, recovered, resolved. 6. Secondary hyperparathyroidism with current degree of kidney function. No need on calcitriol. Time spent examining the patient [id number], reviewing the data lab and radiology, placing orders, discussing with the patient, explaining risks, benefits, alternatives, discussing with the staff member including nursing discussing with the hospitalist more than 35 minutes. FLORIDALMA Voice ID: [id number] Report ID: [id number] CLAUDIA
[2022-01-03] MEDS ORDERED: SOD FERRIC GLUC COMPLX/SUCROSE 250 MG in NA CHLORIDE 0.9% 250 ML IV SCH (13:00)
[2022-01-03] MEDS: HYDRALAZINE HCL 25 MG TABLET PO SCH ×2 (13:31→21:18)
[2022-01-03] MEDS: carvediloL 25 MG TAB PO SCH (18:09)
--- NOTE | 2022-01-03 23:34 | P.PN ---
Subjective Date of Service: 01/03/22 Chief Complaint: Acute renal failure transient black No acute events overnight. She appeared to be doing quite well on rounds. Her glucose has been stable and her renal function is improving. Discussed that the plan today would be to titrate insulin and to plan for discharge tomorrow morning if everything was stable. About 5-10 minutes after I left her room, a rapid response was called. I returned to her room to find her with generalized jerking/questionable seizure- like activity. Given that these episodes are what she described as her "mastocytosis flares," ordered STAT methylprednisolone, diphenhydramine, and famotidine. I requested STAT IV lorazepam as well in case this was a seizure; however, there were several things that argue against this. Firstly, she made direct eye contact with me throughout the episode. Secondly, when painful stimuli were applied to her nail beds, she responded appropriately. Thirdly, she began speaking to me and requesting different doses of medications during the episode. Given this clinical presentation, I felt that benzodiazepines were likely to cause more harm than benefit, so lorazepam was not given. Shortly after she received the diphenhydramine, her episode completely ceased and she began acting normally, with no sign of a post-ictal period. She proceeded to tell me that this was now her 760th attack of mastocytosis in the last 7 years. Review of Systems 10-point ROS is otherwise unremarkable Neurological: Seizures (seizure-like activity) Physical Examination - Vital Signs Temperature: 98.2 F Blood Pressure: 195/95 Pulse: 92 Respirations: 16 Pulse Ox (%): 95 Assessment And Plan - Plan - Physical Exam General: Alert, In no apparent distress, Oriented x3 HEENT: Atraumatic, PERRLA, Mucous membr. moist/pink, EOMI, Sclerae nonicteric Neck: Supple, JVD not distended Respiratory: Clear to auscultation bilaterally, Normal air movement Cardiovascular: No edema, Regular rate/rhythm, Normal S1 S2, No gallops, No rubs, No murmurs Gastrointestinal: Normal bowel sounds, Soft and benign, Non-distended, No tenderness, No rebound, No guarding Musculoskeletal: No clubbing Integumentary: No rashes, Skin lesion (bilateral feet - sees a target worker (states that these are mastocytosis-related lesions)) # Seizure-Like Episode For the reasons described in the events of the rapid response earlier today, I feel that 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 However, cannot exclude a true organic seizure. - Consulted Neurology and spoke with Dr. Rossi - recommendations appreciated - He agrees and feels that this episode represents a psychogenic nonepileptic seizure - Requested EEG to exclude an organic seizure - I believe that she would benefit from a Psychiatry consultation - which has been requested # Recurrent Syncope # Reported Chronic Congestive Heart Failure # Hypertension Differential diagnoses include, but are not limited to, vasovagal syncope, orthostatic hypotension, cardiac etiology (i.e. arrhythmia, valvulopathy), and neurogenic etiologies (i.e. cerebrovascular accident, seizure). She states that she believes these episodes occur with significant mastocytosis flare-ups. Will initiate further evaluation as outlined below: - Orthostatic vital signs Telemetry - Transthoracic echocardiogram - Resume home carvedilol if orthostatic vital signs are negative - Noncontrast CT head = "no acute intracranial abnormality." # Elevated Creatinine - Acute Kidney Injury vs Chronic Kidney Disease Stage IV - Nephrology consulted - recommendatinos appreciated - Creatinine = 3.08 -> 2.89 -> 2.43 (baseline creatinine unknown) - Reports have a known kidney function of "3%" - Renal ultrasound = "Unremarkable renal sonogram. No evidence hydronephrosis." - Urinalysis = 2+ glucose, trace blood, 1+ protein - Monitor creatinine and urine output - Renally dose medications # Hyperglycemia - suspect Type II Diabetes Mellitus - Denies history of diabetes mellitus, but reports taking metformin and Tradjenta at home - Hgb A1c = >14.0 - Started basal insulin with insulin glargine at 15 units daily - Correction scale insulin ordered # Reported Systemic and Cuteaneous Mastocytosis - Continue home medications - Wound care consulted Juan M Ortiz M.D.
--- NOTE | 2022-01-03 23:43 | CON ---
Reason For Consultation: Consultation called because of possible seizures versus pseudoseizures. History Of Present Illness: Ms. Lee is a 66-year-old right-handed patient with report ed history of mastocytosis treated with prednisone, Benadryl, Atarax, who has multiple episodes of "b lackout spells." She is however, aware during the episodes, which progressed in a stereotyped manner . They may involve her left-side shaking. She may turn her head to the left and is able to do purpo seful activity and speak during the episodes, which may last a few minutes. She reports having 760 e pisodes since she began having it. The episodes are not associated with any permanent or significant injury or damage to the organ systems or body in general. She does not have any deficits in between episodes. Her head CT scan at [facility] showed no acute ischemic or hemorrhagic change. No abnormalities were identified. Her blood work showed a low hemoglobin of 7.5, white blood cell co unt is normal at 7.8. Her differential is normal. Coagulation panel was normal. Chemistries show c reatinine of 2.43 and glucose ranged up to 362 with low calcium of 7.6. Urinalysis showed trace bloo d, 1+ protein. She has an immunological panel pending and COVID testing is negative. Allergies: ACETAMINOPHEN, IBUPROFEN, METHYLPREDNISOLONE, ALBUTEROL. Family History: Noncontributory. Past Medical History: Bronchitis and food poisoning. Past Surgical History: Tonsillectomy, exploratory laparotomy. Social History: No alcohol or tobacco, but caffeinated beverages are used. No illegal drugs. Review of Systems: She does have some superficial ulcers on the feet, otherwise essentially unremarkable. Physical Examination: Vital Signs: Blood pressure 185/87, pulse 81, respiratory rate 18, temperature 98.9, oxygen saturati on 98%, weight 178 pounds. Height 5 feet 2 inches. General: Ms. Lee is resting in bed. She has very coherent story. However, it seems far fetche d in terms of her ability to recount the details during the blackouts. Furthermore, reporting a numb er of about 750 episodes with no permanent deficits or injury, so this is likely to be epileptic. Re st of the general exam is essentially unremarkable. Heart: Regular. Abdomen: Soft. Extremities: Show no edema or cyanosis. Neurological: She is alert and oriented to situation, place, and person. Follows commands appropria tely. Cranial nerves 2 through 12 intact. Coordination, sensation, strength, no focal deficits. Assessment: Ms. Lee is a 66-year-old patient with reported stereotyped shaking identified as bl ackouts related to mastocytosis. I do not have any clinical correlation with epileptic seizures. Plan: An EEG during an episode may be helpful to characterize the events as not epileptic. If she h as not had an MRI recently, an MRI may be in order of the brain with and without contrast epilepsy pr otocol. Her brain CT scan has been unremarkable going back to 2012. Plan: Follow EEG if done and MRI. Otherwise, the patient may require followup with Psychiatry. SAGRARIO/HARDEEP Voice ID: [id number] Report ID: [id number]
[2022-01-04] MEDS ORDERED: HYDRALAZINE HCL 20 MG/ML VIAL IV PRN (00:42)
[2022-01-04 01:55] LABS: Rheumatoid Factor NEG (NEG)
[2022-01-04] MEDS: carvediloL 25 MG TAB PO SCH ×2 (06:10→17:16)
--- NOTE | 2022-01-04 07:09 | ECHO ---
HEIGHT: 5 ft 2 in WEIGHT: 178 lb 0 oz DATE OF STUDY: 01/02/[address]: Juan M Ortiz MD 2-DIMENSIONAL: YES M.MODE: YES DOPPLER: YES COLOR FLOW: YES TDS: NO PORTABLE: YES DEFINITY: NO BUBBLE STUDY: NO DIAGNOSIS: SYNCOPE CARDIAC HISTORY: CATHERIZATION: SURGERY: PROSTHETIC VALVE: PACEMAKER: MEASUREMENTS (cm) DIASTOLIC (NORMALS) SYSTOLIC (NORMALS) IVSd 1.2 (0.6-1.2) LA Diam 3.4 (1.9-4.0) LVEF 52% LVIDd 4.6 (3.5-5.7) LVIDs 3.4 (2.0-3.5) %FS 27% LVPWd 1.2 (0.6-1.2) Ao Diam 2.9 (2.0-3.7) 2 DIMENSIONAL ASSESSMENT: RIGHT ATRIUM: NORMAL LEFT ATRIUM: NORMAL RIGHT VENTRICLE: NORMAL LEFT VENTRICLE: NORMAL TRICUSPID VALVE: NORMAL MITRAL VALVE: NORMAL PULMONIC VALVE: NORMAL AORTIC VALVE: NORMAL PERICARDIAL EFFUSION: NONE AORTIC ROOT: NORMAL LEFT VENTRICULAR WALL MOTION: NORMAL DOPPLER/COLOR FLOW: NORMAL COMMENTS: NORMAL 2D ECHOCARDIOGRAM WITH DOPPLER. NO WALL MOTION ABNORMALITY. NO EFFUSION. TECHNOLOGIST: Truman RYAN
[2022-01-04 07:52] LABS: Absolute Lymphocytes (CBC) 1.3 K/uL (0.7-4.9); Hematocrit 23.2 % (36.0-45.0); Lymphocytes % 13.6 % (15.3-44.8); MCV 83.3 fL (80-100); MPV 8.5 fL (7.6-11.3); RBC Red Blood Cell Count 2.78 M/uL (3.86-4.86)
[2022-01-04 08:11] LABS: Albumin 2.5 g/dL (3.4-5.0); Phosphorus 2.9 mg/dL (2.5-4.9); Potassium 4.3 mmol/L (3.5-5.1)
[2022-01-04] MEDS: AMLODIPINE 10 MG TAB PO SCH (10:00)
[2022-01-04] MEDS: HYDRALAZINE HCL 25 MG TABLET PO SCH ×3 (10:00→20:59)
[2022-01-04] MEDS: CEFAZOLIN 1 GM in NA CHLORIDE 0.9% 50 ML IVPB SCH ×2 (10:00→20:59)
[2022-01-04] MEDS: INSULIN -REGULAR HUMAN 50 UNIT/0.5 ML ML SQ SCH ×4 (10:02→20:58)
[2022-01-04] MEDS: INSULIN GLARGINE 100 UNIT/ML SQ SCH (10:02)
--- NOTE | 2022-01-04 12:50 | PN ---
Date of Progress Note: 01/04/2022 Subjective: The patient was admitted with altered mental status, seizure activity, acute kidney injury secondary to prerenal. The patient had been on hydration. Kidney function has been improved. The patient yesterday has episode of questionable of seizure. It was more faking jerk movement. Physical Examination: Vital Signs: Blood pressure 183/88, pulse of 79, afebrile. Chest: Clear to auscultation. Heart: S1, S2. Regular. Abdomen: Soft, nontender. Extremity: No edema. Multiple ulcers on the left leg. Amputation toe on the left foot. Neurologic: Alert. No focality. Laboratory Data: WBC 9.4, H and H 7.6/23.2. Sodium 136, potassium 4.3, bicarb 19, BUN 31, creatinine 2.2, blood sugar 400, GFR up to 23, calcium 8.5, phosphorus 2.9, albumin 2.5, corrected calcium is 9.7. Current Medications: The patient on include; 1. Cefazolin. 2. Hydroxyzine. 3. IV iron. 4. Amlodipine 10 mg. 5. Carvedilol 25 b.i.d. 6. Hydralazine 25 t.i.d. 7. Insulin 15. Assessment And Plan: 1. Acute kidney injury, mostly secondary to prerenal, small size kidney on chronic kidney disease secondary to diabetes nephropathy, acute component secondary to prerenal, currently normal volume. Keep holding IV fluid. 2. Chronic kidney disease, small size kidney with proteinuric with acute kidney injury as above. 3. Acidosis secondary to IV fluid, non-anion gap acidosis. IV fluid has been discontinued. We will follow up. 4. Hyponatremia secondary to renal failure, resolved. 5. Secondary hyperparathyroidism. No need for any calcitriol for the time being. 6. Anemia of chronic kidney disease. Serum protein electrophoresis is still pending. Continue to monitor. 7. Iron deficiency anemia. Continue IV iron. Time spent examining the patient [id number], reviewing the data lab and radiology, placing orders, discussing with the patient, explaining risks, benefits, alternatives, discussing with the staff member including nursing discussing with the hospitalist more than 35 minutes. FLORIDALMA Voice ID: [id number] Report ID: [id number] CLAUDIA
--- NOTE | 2022-01-04 13:51 | EEG ---
CHART: [id number] TEST ID#: [id number] DATE OF STUDY: 01-04-2022 THE EEG WAS RECORDED PORTABLE IN THE PATIENT'S ROOM ON A 17 CHANNEL MACHINE. ELECTRODES WERE APPLIED IN THE USUAL MANNER USING THE INTERNATIONAL 10-20 SYSTEM. THE WAKING BACKGROUND RHYTHM IN THIS RECORD CONSISTS OF VERY WELL DEVELOPED AND WELL ORGANIZED WAVES OF 10 HZ., MAXIMAL IN THE POSTERIOR HEAD REGIONS WHICH ATTENUATE NORMALLY WITH EYE OPENING. LOW-VOLTAGE 18-22 HZ ACTIVITY IS EXPRESSED IN THE FROTNAL REGIONS. THERE ARE NO FOCAL OR LATERALIZING FEATURES. NO EPILEPTIFORM ACTIVITY APPEARS. SLEEP OCCURRED NATURALLY. IN ADDITION NORMAL SLEEP PATTERNS ARE PRESENT. HYPERVENTILATION WAS NOT PERFORMED. PHOTIC STIMULATION PRODUCED POOR DRIVING BILATERALLY. IMPRESSION: NORMAL EEG FOR THE AGE OF THE PATIENT IN [place], DROWSINESS AND SLEEP.
[2022-01-04] MEDS: hydrOXYzine HCL 25 MG TAB PO PRN (18:18)
[2022-01-04] MEDS ORDERED: DIPHENHYDRAMINE 50 MG/ML VIAL ONE (18:25)
--- NOTE | 2022-01-04 23:21 | P.PN ---
Subjective Date of Service: 01/04/22 Chief Complaint: Acute renal failure transient black No acute events overnight. Today, she had two more of these episodes; however, she made eye contact and asked for medicine in the middle of the seizure-like activity. Review of Systems 10-point ROS is otherwise unremarkable Neurological: Other (seizure-like episodes) Physical Examination - Vital Signs Temperature: 98.5 F Blood Pressure: 145/71 Pulse: 76 Respirations: 14 Pulse Ox (%): 96 Assessment And Plan - Plan - Physical Exam General: Alert, In no apparent distress, Oriented x3 HEENT: Atraumatic, PERRLA, Mucous membr. moist/pink, EOMI, Sclerae nonicteric Neck: Supple, JVD not distended Respiratory: Clear to auscultation bilaterally, Normal air movement Cardiovascular: No edema, Regular rate/rhythm, Normal S1 S2, No gallops, No rubs, No murmurs Gastrointestinal: Normal bowel sounds, Soft and benign, Non-distended, No tenderness, No rebound, No guarding Musculoskeletal: No clubbing Integumentary: No rashes, Skin lesion (bilateral feet - sees a it infrastructure architect (states that these are mastocytosis-related lesions)) # Bilateral Foot Wounds - positive for MSSA and Group B Streptococcus # Reported Systemic and Cuteaneous Mastocytosis - Continue home medications - No evidence of sepsis at this time - Started cefazolin for infected wounds - Wound care consulted # Seizure-Like Episode For the reasons described in the events of the rapid response on 01/03/2022, I feel that 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 However, cannot exclude a true organic seizure. - Consulted Neurology and spoke with Dr. Rossi - recommendations appreciated - He agrees and feels that this episode represents a psychogenic nonepileptic seizure - Requested EEG and MRI to exclude an organic seizure - I believe that she would benefit from a Psychiatry consultation - which has been requested # Recurrent Syncope # Reported Chronic Congestive Heart Failure # Hypertension Differential diagnoses include, but are not limited to, vasovagal syncope, orthostatic hypotension, cardiac etiology (i.e. arrhythmia, valvulopathy), and neurogenic etiologies (i.e. cerebrovascular accident, seizure). She states that she believes these episodes occur with significant mastocytosis flare-ups. Will initiate further evaluation as outlined below: - Orthostatic vital signs Telemetry - Transthoracic echocardiogram = normal function with LVEF of 52 % - Resume home carvedilol if orthostatic vital signs are negative - Noncontrast CT head = "no acute intracranial abnormality." # Elevated Creatinine - Acute Kidney Injury vs Chronic Kidney Disease Stage IV - Nephrology consulted - recommendatinos appreciated - Creatinine = 3.08 -> 2.89 -> 2.43 -> 2.29 (baseline creatinine unknown) - Reports have a known kidney function of "3%" - Renal ultrasound = "Unremarkable renal sonogram. No evidence hydronephrosis." - Urinalysis = 2+ glucose, trace blood, 1+ protein - Monitor creatinine and urine output - Renally dose medications # Hyperglycemia - suspect Type II Diabetes Mellitus - Denies history of diabetes mellitus, but reports taking metformin and Tradjenta at home - Hgb A1c = >14.0 - Started basal insulin with insulin glargine at 18 units daily - Correction scale insulin ordered Juan M Ortiz M.D.
[2022-01-05] MEDS: carvediloL 25 MG TAB PO SCH (06:00)
[2022-01-05] MEDS: CEFAZOLIN 1 GM in NA CHLORIDE 0.9% 50 ML IVPB SCH ×2 (09:00→10:00)
--- NOTE | 2022-01-05 09:11 | RAD REPORT ---
EXAM DESCRIPTION: MRI - Brain Wo Cont - 01/05/2022 8:39 am CLINICAL HISTORY: Seizure COMPARISON: Head CT December 31, 2021 TECHNIQUE: Axial, sagittal, and coronal magnetic resonance images of the brain were obtained. FINDINGS: Small area of increased signal right basal ganglia probably an old lacunar infarction. Hippocampal gyri normal caliber and signal. Diffusion-weighted/ADC mapping does not reveal evidence of acute infarction. The ventricles are normal caliber. An extra-axial fluid collection is not noted. Fluid within the sinuses/mastoids is not seen IMPRESSION: No acute intracranial abnormality noted
[2022-01-05] MEDS: HYDRALAZINE HCL 25 MG TABLET PO SCH (09:58)
[2022-01-05] MEDS: AMLODIPINE 10 MG TAB PO SCH (09:58)
[2022-01-05] MEDS: INSULIN -REGULAR HUMAN 50 UNIT/0.5 ML ML SQ SCH ×2 (09:59→12:55)
[2022-01-05] MEDS: INSULIN GLARGINE 100 UNIT/ML SQ SCH (09:59)
--- NOTE | 2022-01-05 10:44 | P.PN ---
Subjective Date of Service: 01/05/22 Chief Complaint: Acute renal failure transient black Subjective: No new changes (No urinary complaints.) Physical Examination - Vital Signs Temperature: 98.0 F Blood Pressure: 142/74 Pulse: 71 Respirations: 16 Pulse Ox (%): 97 - Physical Exam General: Other (Appears chronically ill) HEENT: Atraumatic, Normocephalic Neck: Supple Respiratory: Other (Symmetric chest expansion) Cardiovascular: No rubs, No murmurs Gastrointestinal: Soft and benign, No rebound Musculoskeletal: No clubbing Integumentary: No warmth Neurological: Normal tone Urinary: Other (No bladder distention) External genitalia: Deferred Rectal: Deferred Assessment And Plan - Plan 1. Acute kidney injury, mostly secondary to prerenal, small size kidney on chronic kidney disease secondary to diabetes nephropathy, acute component secondary to prerenal, currently normal volume. SCr plateauing at 2.3-2.5. [place] fluid intake. 2. Chronic kidney disease, small size kidney with proteinuric with acute kidney injury as above. Likely w/ underlying baseline CKD 3b-4. Monitor renal panel. 3. Acidosis secondary to IV fluid, non-anion gap acidosis. Improved. Monitor. 4. Hyponatremia secondary to renal failure, resolved. Monitor. 5. Secondary hyperparathyroidism. No need for any calcitriol for the time being. 6. Anemia of chronic kidney disease. Serum protein electrophoresis is still pending. Continue to monitor. 7. Iron deficiency anemia. Continue IV iron.
[2022-01-05 11:15] LABS: Albumin 2.8 g/dL (3.4-5.0); Phosphorus 3.5 mg/dL (2.5-4.9); Potassium 3.8 mmol/L (3.5-5.1)
[2022-01-05] MEDS: hydrOXYzine HCL 25 MG TAB PO PRN (12:54)
[2022-01-05 13:01] LABS: Albumin, (SPE) 3.2 g/dL (3.8-4.8); Alpha-1-Globulins 0.3 g/dL (0.2-0.3); Alpha-2-Globulins 0.7 g/dL (0.5-0.9); Gamma Globulins 1.1 g/dL (0.8-1.7); INTERPRETATION REPORT
--- NOTE | 2022-01-05 15:14 | RAD REPORT ---
EXAM DESCRIPTION: RAD - Foot Left 3 View - 01/05/2022 2:48 pm CLINICAL HISTORY: foot xray Pain and swelling COMPARISON: Foot Right 3 View dated 01/05/2022 FINDINGS: Third toe appears surgically absent. There is advanced degenerative change involving the f irst MTP joint and second MTP joint. Soft tissue swelling is present involving the great toe. No radi ographic finding to indicate osteomyelitis. If osteomyelitis remains a clinical concern, recommend fo llowup MR imaging.
--- NOTE | 2022-01-05 15:15 | RAD REPORT ---
EXAM DESCRIPTION: RAD - Foot Right 3 View - 01/05/2022 2:48 pm CLINICAL HISTORY: foot xray Pain and swelling COMPARISON: No comparisons FINDINGS: Moderate plantar and tiny posterior calcaneal spur. Mild hallux valgus is seen with degene rative changes at the first MTP joint. No fracture, dislocation or evidence osteomyelitis.
--- NOTE | 2022-01-05 16:15 | P.DS ---
Admission Date: 12/31/21 Discharge Date: 01/05/22 Disposition: AMA-LEFT AGAINST MEDICAL ADVIC Discharge Condition: FAIR Reason for Admission: Acute renal failure/Syncope Consultations: 1. Nephrology 2. Neurology 3. 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 Zohreh Lee is a 66 year old female with a past medical history significant for reported systemic and cutaneous mastocytosis, type 2 diabetes melitis, and chronic kidney disease stage IIIb who was admitted to the [facility] on 12/31/2021 for acute kidney injury and syncope. She was admitted to the Medicine service for further evaluation. Upon evaluation, she was found to have significant renal impairment, for which Nephrology was consulted. She was evaluated by Dr. Smith, who diagnosed her with chronic kidney disease stage IIIb secondary to diabetic nephropathy with poor medication compliance. During her hospitalization, she was found to have very poorly-controlled type II diabetes mellitus. She was titrated up on insulin and her glucose has remained stable. In regards to her bilateral foot wounds, these wounds returned positive for Methicillin-Sensitive Staphylococcus Aureus and Group B Streptococcus. She was started on cefazolin per sensitivities and x- rays of her bilateral feet were obtained. These x-rays were not compatible with osteomyelitis. An MRI of the left foot was ordered, but not completed as she left against medical advice prior this being obtained. I spoke with pharmacy who recommended a renally-dosed levofloxacin, which has been prescribed to her pharmacy. Throughout her hospital course, she continued to have seizure-like episodes, which she described as "mastocytosis flares." During these episodes, she would jerk her limbs, tilt her head, make eye contact, respond to painful stimuli, and request medications mid-episode. On the surface, these episode were most consistent with a psychogenic nonepileptic seizures. However, to confirm the absence of epileptic seizures, a Neurology consultation, EEG, and MRI brain were obtained. Her MRI revealed, "no acute intracranial abnormality noted." Here EEG revealed, "normal EEG for the age of the patient in wake, drowsiness and sleep." I discussed these findings with Dr. Rossi, who agrees that these seizures are psychogenic in nature. Earlier today, with her bedside RN Marychuy present, I explained that I do feel that her episodes clinically are not consistent with a mastocytosis flare-up. Additionally, I do not feel that the data supports an epileptic seizure. I explained that these episodes are most consistent with a psychogenic nonepileptic seizure. I explained that my recommendation is that she see a Psychiatrist to assist her with coping mechanisms given her significant life stressors. She stated that she had no interest in seeing a Psychiatrist because she felt that she can cope with her stress without one. She does not appear to be in an acute psychiatric crisis. She specifically denies any suicidial or homicidal ideation, intention, or plan. She has expressed frustration with her hospital course and has decided to leave against medical advice. She was given instructions to schedule follow-up appointments with her PCP and with Nephrology (Dr. Smith) as soon as possible. She was provided prescriptions for insulin glargine and levofloxacin. She was given the opportunity to ask questions and reported no further questions. Furthermore, all questions were answered to the best of my ability. Based on her ability to understand her disease process, understand the consequences of not pursuing therapy, communicate that she would like to be discharged, and her ability to explain her rationale for being discharged, I believe that she has medical decision making capacity. Today, I personally spent 50 minutes on her case, of which greater than 50% of the time was spent in patient education, counseling, and coordination of care as described above. - Physical Exam General: Alert, In no apparent distress, Oriented x3 HEENT: Atraumatic, Mucous membr. moist/pink, EOMI, Sclerae nonicteric Neck: JVD not distended Respiratory: Breathing comfortably on room air Cardiovascular: No edema, Regular rate/rhythm on telemetry Gastrointestinal: Non-distended, No tenderness Musculoskeletal: No clubbing Integumentary: No rashes, Skin lesion (bilateral feet - sees a player services representative (states that these are mastocytosis-related lesions)) Vital Signs/Physical Exam: Temp Pulse Resp BP Pulse Ox 97.7 F 65 16 160/83 H 98 01/05/22 15:45 01/05/22 15:45 01/05/22 15:45 01/05/22 15:45 01/05/22 15:45 Laboratory Data at Discharge: WBC 9.40 K/uL (4.3-10.9) D 01/04/22 07:37 Hgb 7.6 g/dL (12.0-15.0) L 01/04/22 07:37 Hct 23.2 % (36.0-45.0) L 01/04/22 07:37 Plt Count 226 K/uL (152-406) 01/04/22 07:37 PT 10.8 SECONDS (9.5-12.5) 12/31/21 14:05 INR 0.98 12/31/21 14:05 APTT 29.5 SECONDS (24.3-36.9) 12/31/21 14:05 Sodium 139 mmol/L (136-145) 01/05/22 10:27 Potassium 3.8 mmol/L (3.5-5.1) 01/05/22 10:27 BUN 36 mg/dL (7-18) H 01/05/22 10:27 Creatinine 2.47 mg/dL (0.55-1.3) H 01/05/22 10:27 Glucose 273 mg/dL (74-106) H 01/05/22 10:27 Uric Acid 5.7 mg/dL (2.6-6.0) 01/03/22 05:49 Phosphorus 3.5 mg/dL (2.5-4.9) 01/05/22 10:27 Magnesium 2.3 mg/dL (1.8-2.4) 01/01/22 05:19 Total Bilirubin 0.2 mg/dL (0.2-1.0) 01/01/22 05:19 AST 9 U/L (15-37) L 01/01/22 05:19 ALT 11 U/L (12-78) L 01/01/22 05:19 Alkaline Phosphatase 95 U/L (45-117) 01/01/22 05:19 Home Medications: Cimetidine [Tagamet Hb] 200 mg PO DAILY 01/08/13 Hydroxyzine HCl [Atarax] 25 mg PO PRN PRN 01/08/13 Amlodipine [Norvasc*] 5 mg PO DAILY 01/01/22 Bumetanide [Bumex*] 2 tab PO DAILY 01/01/22 Cetirizine HCl [Zyrtec*] 1 tab PO DAILY 01/01/22 Collagenase [Santyl Ointment*] 1 appl TD DAILY 01/01/22 Glipizide [Glipizide ER] 10 mg PO DAILY 01/01/22 carvediloL [Coreg*] 12.5 mg PO BID 01/01/22 Insulin Glargine,Hum.rec.anlog [Insulin Glargine] 15 unit SQ DAILY #3 vial 01/05/22 Levofloxacin [Levaquin] 250 mg PO DAILY #14 tab 01/05/22 New Medications: Insulin Glargine,Hum.rec.anlog [Insulin Glargine] 15 unit SQ DAILY #3 vial Levofloxacin [Levaquin] 250 mg PO DAILY #14 tab Physician Discharge Instructions: 1. Please schedule a follow-up with your PCP as soon as possible 2. Please schedule a follow-up with Nephrology (Dr. Smith) as soon as possible Diet: Regular Activity: Fall precautions Followup: NONE,NONE [Primary Care Provider] - Time spent managing pt's care (in minutes): 50
[2022-01-05 16:36] VITALS: O2SAT 97
[2022-01-05 17:09] LABS: HIV AG/AB 4TH GEN Non-reactive (Non-reactive)
--- NOTE | 2022-01-05 18:48 | CON ---
History Of Present Illness: This is a 66-year-old female coming in with lower extremity wounds, whic h is growing staph and strep, currently being treated with cefazolin. The patient denies any headach e, nausea, vomiting, chest pain, abdominal pain, constipation, or diarrhea. The patient was initiall y admitted on December 31, where she was brought in because she passed out, as she has been going throu gh a lot of stress at home. The patient has significant history of mastocytosis and has multiple epi sodes of passing out. Denies any other problems at this time. Able to eat food without any problems . Past Medical History: Mastocytosis, bronchitis, food poisoning, being blind, tonsillectomy, explorat ory lap, lower extremity wounds. Social History: Nonsmoker, nondrinker. Family History: Noncontributory. Medications: Cefazolin. See MAR for other medications. Allergies: ACETAMINOPHEN, IBUPROFEN, AND ALBUTEROL. Review of Systems: A 10-point review was performed. Physical Examination: General: This is a 66-year-old female, lying in bed, not in any acute cardiopulmonary distress. Vital Signs: Temperature 98, pulse 65, respirations 14, blood pressure 163/65. HEENT: Unremarkable. Neck: Supple. Lungs: Clear to auscultation. Heart: S1, S2. Regular. Abdomen: Soft, nontender. Bowel sounds present. Extremities: Right leg with superficial wound noted and left leg with excoriated areas noted. No si gns of cellulitis. MRI of the brain done earlier today showed no acute intracranial abnormalities. Chest x-ray done on December 31, showed no acute infiltrates. Assessment And Plan: This is a 66-year-old female with lower extremity wounds. Consider applying Xe roform and stopping IV antibiotic, switching to Keflex 500 mg q.12 hours as patient has renal insuffi ciency with creatinine of 2.47. Wound cultures are growing Staphylococcus aureus and strep possibly colonization of the wounds. Lower extremity wound showed Xeroform dressing and Kerlix to keep it pro tected. Keep legs elevated when possible. History of mastocytosis, recurrent syncopes, hypertension , moderate protein-calorie malnourishment, anemia of chronic disease. Continue current treatment and monitor signs of infection with fever and WBC trend. Thank you Dr. Ortiz for consult. NF/MODL Voice ID: [id number] Report ID: [id number]
[2022-01-06 05:20] LABS: Hepatitis C Virus RNA (PCR)log <1.18 log IU/mL
[2022-01-06 05:44] VITALS: BP 142/74; TEMP 98
[2022-01-06 18:47] LABS: HBsAG Nonreactive (Nonreactive)
[2022-01-06 23:18] LABS: Vitamin D 1,25-Dihydroxy Total 20 pg/mL (18-72); Vitamin D,1,25-OH2, D2 <8 pg/mL
== END 2022-01-05 16:13 | disposition left against medical advice (07) | DRG 683 ==
LOC: ER 14:03 → ERHOLD 17:05 → 4TH 22:08
PROVIDERS: ADMIT Internal Medicine Sleep Medicine; ATTEND Internal Medicine
DX: N17.9 Acute kidney failure, unspecified (principal); D47.01 Cutaneous mastocytosis; I13.0 Hypertensive heart and chronic kidney disease with heart failure and stage 1 through stage 4 chronic kidney disease, or unspecified chronic kidney disease; E87.1 Hypo-osmolality and hyponatremia; E87.2 Acidosis; I50.9 Heart failure, unspecified; N18.32 Chronic kidney disease, stage 3b; E11.22 Type 2 diabetes mellitus with diabetic chronic kidney disease; E11.621 Type 2 diabetes mellitus with foot ulcer; E11.65 Type 2 diabetes mellitus with hyperglycemia; E11.319 Type 2 diabetes mellitus with unspecified diabetic retinopathy without macular edema; L97.509 Non-pressure chronic ulcer of other part of unspecified foot with unspecified severity; D63.1 Anemia in chronic kidney disease; D50.9 Iron deficiency anemia, unspecified; N25.81 Secondary hyperparathyroidism of renal origin; G40.409 Other generalized epilepsy and epileptic syndromes, not intractable, without status epilepticus; B95.1 Streptococcus, group B, as the cause of diseases classified elsewhere; B95.61 Methicillin susceptible Staphylococcus aureus infection as the cause of diseases classified elsewhere; R55 Syncope and collapse; Z88.8 Allergy status to other drugs, medicaments and biological substances; Z79.4 Long term (current) use of insulin; Z79.82 Long term (current) use of aspirin; Z91.14 Patient's other noncompliance with medication regimen; Z79.52 Long term (current) use of systemic steroids; Z53.29 Procedure and treatment not carried out because of patient's decision for other reasons; Z79.899 Other long term (current) drug therapy; Z79.84 Long term (current) use of oral hypoglycemic drugs; Z20.822 Contact with and (suspected) exposure to COVID-19
CPT/HCPCS: 36415; 70450; 70551; 71045; 76770; 80048; 80053; 80069; 81003; 81015; 82550; 82652; 82728; 82746; 82947; 83036; 83520; 83540; 83735; 83970; 84165; 84439; 84443; 84466; 84550; 85025; 85044; 85610; 85730; 86021; 86038; 86160; 86225; 86317; 86334; 86430; 86704; 86706; 87070; 87077; 87186; 87205; 87340; 87389; 87522; 87811; 93005; 93306; 95819; 96372; 96374; 96375; 99251; 99284; A6010; J0690; J1200; J1815; J2916; J2930; J7030; J7050; Q0163